=== PATIENT | female | born 1975 | race Caucasian/White ===

== ENCOUNTER 2016-06-11 17:00 | Inpatient (IN) | payer BC, OTHER ==
[~2016-06-11] VITALS: Ht 162.6 cm; Wt 85.1 kg
[~2016-06-11 17:00] MED LIST: ADDE30TA PO; DEPA500T3 PO; DIVA500T PO; XANA1TAB2 PO
[2016-06-11 18:20] VITALS: BP 95/44; PULSE 93; RESP 16; TEMP 98.1; O2SAT 94
[2016-06-11 18:56] VITALS: BP 105/61; PULSE 76; RESP 18; TEMP 96.4; O2SAT 98
--- NOTE | 2016-06-11 20:34 | PD ---
HPI Chief Complaint: Psychiatric Symptoms Time Seen by Provider: 20:34 Travel History International Travel<30 days: No Contact w/Intl Traveler<30days: No Traveled to known affect area: No History of Present Illness HPI 41 year old female presents to the ED under Humphreys Act for psychiatric evaluation. According to BA paperwork the patient cut herself, then called her father stating that she drank a lot of vodka and there was blood everywhere. The patient was seen at an outside hospital and treated. Just before discharge she made a suicidal statement and was BA'd and transferred here.On presentation the patient is intoxicated. She denies SI. She endorses drinking vodka today. She can provide no other meaningful history. PFSH Past Medical History Hx Anticoagulant Therapy: No Anemia: Yes (secondary to heavy menstrual cycle) Bipolar Disorder: Yes (NON MEDICATED) Anxiety: Yes Depression: Yes Cardiovascular Problems: No Chemotherapy: No Cerebrovascular Accident: No Diabetes: No Diminished Hearing: No Endocrine: No Immune Disorder: No Neurologic: Yes Psychiatric: No Respiratory: No Immunizations Current: Yes Seizures: Yes (R/T ETOH WITHDRAWL) Thyroid Disease: No ?: Unknown Menopausal: Yes : 2 Para: 2 Past Surgical History Section: Yes Cholecystectomy: Yes Endocrine Surgery: Yes (gall bladder removed) Hysterectomy: Yes Other Surgery: Yes (gastric bypass) Social History Alcohol Use: Yes (recent relapse. ) Tobacco Use: No Substance Use: Yes Allergies-Medications (Allergen,Severity, Reaction): Coded Allergies: Aspirin (Verified Allergy, Unknown, Nausea/Vomiting, 06/11/16) Reported Meds & Prescriptions Reported Meds & Active Scripts Active Divalproex DR (Divalproex Sodium) 500 Mg Tabdr 500 Mg PO BID 7 Days Reported Adderall (Amphetamine-Dextroamphetamine) 30 Mg Tab 30 Mg PO DAILY Avoid late evening doses. Space doses at least 4 to 6 hours if more than once/day dosing. Depakote ER (Divalproex Sodium) 500 Mg Xiomara 500 Mg PO DAILY Xanax (Alprazolam) 1 Mg Tab 0.25 Mg PO Q6H PRN Review of Systems ROS Limitations: Intoxication Except as stated in HPI: all other systems reviewed are Neg Physical Exam Exam Limitations: Intoxication Narrative GENERAL: Well-nourished, well-developed white female in no acute distress. Somnolent but arouses easily to voice. SKIN: Warm and dry. Several superficial scratches on the right forearm and right palm. No active bleeding or signs of infection. HEAD: Normocephalic. EYES: No scleral icterus. No injection or drainage. Pupils 2-3 mm and reactive bilaterally. NECK: Supple, trachea midline. No JVD or lymphadenopathy. CARDIOVASCULAR: Regular rate and rhythm without murmurs, gallops, or rubs. RESPIRATORY: Breath sounds clear and equal bilaterally. No accessory muscle use. GASTROINTESTINAL: Abdomen soft, non-tender, nondistended. Active bowel sounds. MUSCULOSKELETAL: No cyanosis, or edema. Moves extremities spontaneously. BACK: No obvious deformity. No CVA tenderness. Data Data Last Documented VS Vital Signs Date Time Temp Pulse Resp B/P Pulse Ox O2 Delivery O2 Flow Rate FiO2 06/12/16 06:10 71 18 115/72 Room Air 06/12/16 02:57 97.4 96 Orders Complete Blood Count With Diff (06/11/16 17:08) Comprehensive Metabolic Panel (06/11/16 17:08) Urinalysis - C+S If Indicated (06/11/16 17:08) Drug Screen, Random Urine (06/11/16 17:08) Ed Urine Pregnancytest Poc (06/11/16 17:08) Alcohol (Ethanol) (06/11/16 17:08) Psych Screen (06/11/16 17:08) Diet Regular Basic (06/12/16 Breakfast) Alcohol Withdrawal Asmt-Ciwa ONCE (06/11/16 20:53) Ondansetron Odt (Zofran Odt) (06/11/16 21:00) Flumazenil Inj (Romazicon Inj) (06/11/16 21:00) Lorazepam (Ativan) (06/11/16 21:00) Lorazepam Inj (Ativan Inj) (06/11/16 21:00) Lorazepam (Ativan) (06/11/16 21:00) Lorazepam Inj (Ativan Inj) (06/11/16 21:00) Lorazepam Inj (Ativan Inj) (06/11/16 21:00) Lorazepam Inj (Ativan Inj) (06/11/16 21:00) Admit Order (Ed Use Only) (06/12/16 ) Labs Laboratory Tests Test 06/11/16 06/11/16 19:59 23:45 White Blood Count 5.5 TH/MM3 Red Blood Count 4.07 MIL/MM3 Hemoglobin 13.3 GM/DL Hematocrit 40.9 % Mean Corpuscular Volume 100.4 FL Mean Corpuscular Hemoglobin 32.7 PG Mean Corpuscular Hemoglobin 32.6 % Concent Red Cell Distribution Width 15.3 % Platelet Count 208 TH/MM3 Mean Platelet Volume 8.5 FL Neutrophils (%) (Auto) 41.0 % Lymphocytes (%) (Auto) 43.6 % Monocytes (%) (Auto) 13.3 % Eosinophils (%) (Auto) 1.1 % Basophils (%) (Auto) 1.0 % Neutrophils # (Auto) 2.2 TH/MM3 Lymphocytes # (Auto) 2.4 TH/MM3 Monocytes # (Auto) 0.7 TH/MM3 Eosinophils # (Auto) 0.1 TH/MM3 Basophils # (Auto) 0.1 TH/MM3 CBC Comment DIFF FINAL Differential Comment Urine Color YELLOW Urine Turbidity CLEAR Urine pH 5.5 Urine Specific [place] 1.014 Urine Protein NEG mg/dL Urine Glucose (UA) NEG mg/dL Urine Ketones NEG mg/dL Urine Occult Blood NEG Urine Nitrite NEG Urine Bilirubin NEG Urine Urobilinogen LESS THAN 2.0 MG/DL Urine Leukocyte Esterase NEG Urine RBC LESS THAN 1 /hpf Urine WBC 2 /hpf Urine Squamous Epithelial <1 /hpf Cells Urine Mucus FEW /lpf Microscopic Urinalysis Comment CULT NOT INDICATED Urine Opiates Screen NEG Urine Barbiturates Screen NEG Urine Amphetamines Screen NEG Urine Benzodiazepines Screen POS Urine Cocaine Screen NEG Urine Cannabinoids Screen NEG MDM Medical Decision Making Medical Screen Exam Complete: Yes Emergency Medical Condition: Yes Differential Diagnosis Adjustment disorder versus anxiety versus bipolar versus depression versus dementia versus electrolyte disorder versus malingering versus mood disorder versus ODD versus psychosis versus PTSD versus schizophrenia versus schizoaffective disorder versus substance-induced mood disorder versus other Narrative Course 41-year-old female presents to the ED under Humphreys act for psychiatric evaluation. Patient is very intoxicated. She is somnolent but arouses easily to voice. He is unable to provide any meaningful history. Humphreys paperwork states that she drank vodka, slashed her wrist, called her father and said that there was blood everywhere. She was treated at outside hospital, made suicidal statements there and Humphreys acted. Vitals reviewed. Physical exam limited by level of intoxication. Psychiatric protocol labs and CIWA precautions were ordered and are pending. Anticipate medical clearance for psych evaluation. Please see psych notes for disposition. Diagnosis Primary Impression: Alcohol intoxication Qualified Code: F10.120 - Alcohol intoxication, uncomplicated Tiffanie Sow Jun 11, 2016 20:34
[2016-06-11] MEDS ORDERED: FLUMAZENIL 1 MG/10 ML VIAL IV PUSH PRN (21:00)
[2016-06-11] MEDS ORDERED: LORazepam 2 MG TAB PO PRN (21:00)
[2016-06-11] MEDS ORDERED: LORazepam 1 MG TAB PO PRN (21:00)
[2016-06-11] MEDS ORDERED: LORazepam 2 MG/ML VIAL IV PUSH PRN ×4 (21:00)
[2016-06-11 21:35] LABS: AUTOMATED NEUTROPHIL # 2.2 TH/MM3 (1.8-7.7); BASOPHIL # 0.1 TH/MM3 (0-0.2); EOSINOPHIL # 0.1 TH/MM3 (0-0.4); EOSINOPHIL % 1.1 % (0.0-4.0); HEMATOCRIT 40.9 % (35.0-46.0); HEMO FLAGS DIFF FINAL; LYMPH % 43.6 % (9.0-44.0); LYMPHOCYTE # 2.4 TH/MM3 (1.0-4.8); MEAN CELL VOLUME 100.4 FL (80.0-100.0); MEAN CORPUSCULAR HEMOGLOBIN 32.7 PG (27.0-34.0); MEAN CORPUSCULAR HGB CONC 32.6 % (32.0-36.0); MONO % 13.3 % (0.0-8.0); PLATELET COUNT 208 TH/MM3 (150-450); RED BLOOD COUNT 4.07 MIL/MM3 (4.00-5.30); RED CELL DISTRIBUTION WIDTH 15.3 % (11.6-17.2); WHITE BLOOD COUNT 5.5 TH/MM3 (4.0-11.0)
[2016-06-11 22:21] VITALS: BP 112/64; PULSE 75; RESP 17; O2SAT 99
[2016-06-12] LABS: BLOOD, URINE NEG (NEG); COMMENT (UR) CULT NOT INDICATED; CULTURE IF INDICATED CULT NOT INDICATED; GLUCOSE,URINE NEG (NEG); KETONE, URINE NEG (NEG); MUCUS URINE FEW /lpf (OCC); NITRITE,URINE NEG (NEG); PH, URINE 5.5 (5.0-8.5); SQUAMOUS EPITHELIAL CELL URINE <1 /hpf (0-5); URINE COLOR YELLOW (YELLW/STRAW)
[2016-06-12 00:05] LABS: AMPHETAMINE, URINE NEG (NEG); BARBITURATES, URINE NEG (NEG); COCAINE, URINE NEG (NEG)
[2016-06-12 02:57] VITALS: BP 108/64; PULSE 82; RESP 18; TEMP 97.4; O2SAT 96
[2016-06-12 06:10] VITALS: BP 115/72; PULSE 71; RESP 18
--- NOTE | 2016-06-12 08:51 | HHI.HP ---
Provisional Diagnosis Admission Date Jun 12, 2016 at 08:49 [place] I. 1. Alcohol dependence with alcohol-induced mood disorder [place] II. Deferred [place] V. GAF is 45 presently Certification of Person's Competence To Provide Express and Informed Consent I have personally examined Carina Shah , a person being served at [facility] on, Jun 12, 2016 08:51. Express and informed consent means consent voluntarily given in writing, by a competent person, after sufficient explanation and disclosure of the subject matter involved to enable the person to make a knowing and willful decision without any element of force, fraud, deceit, duress, or other form of constraint or coercion. This person is 18 years of age or older, is not now known to be incompetent to consent to treatment with a guardian advocate, and does not have a health care surrogate or proxy currently making medical treatment decisions. I have found this person to be one of the following: [x] Competent to provide express and informed consent, as defined above, for voluntary admission to this facility and is competent to provide express and informed consent for treatment. He/she has the consistent capacity to make well reasoned, willful, and knowing decisions concerning his or her medical or mental health treatment. The person fully and consistently understands the purpose of the admission for examination/placement and is fully capable of personally exercising all rights assured [place] Incompetent to provide express and informed consent to voluntary admission, and this is incompetent to provide express and informed consent to treatment. The person must be transferred to involuntary status and a petition for a guardian advocate filed with the Circuit Court. [] Refusing to provide express and informed consent to voluntary admission but is competent to provide express and informed consent for treatment. The person must be discharged or transferred to involuntary status. Form shall be completed within 24 hours of a person's arrival at the receiving facility and filed in the clinical record of each person: 1. Admitted on a voluntary basis 2. Permitted to provide express and informed consent to his/her own treatment 3. Allowed to transfer from involuntary to voluntary status 4. Prior to permitting a person to consent to his or her own treatment after having been previously found incompetent to consent to treatment. History of Present Illness Capacity: Has Capacity HPI Ms. Shah is a 41-year-old female with a reported history of bipolar disorder, anxiety disorder and alcoholism who presents under a Humphreys act from [facility]'s office alleging that the patient called her father saying that she had cut herself and father then called police. When police arrived they found her with 2 empty vodka bottles. Reviewing the electronic medical record, I note that the patient was admitted for a single day under Dr. Camarena after she fell into a pool while drunk and this was interpreted as trying to drown herself. Patient seen and examined. Chart reviewed. Case discussed with nurse in the J- pod. On my examination today, the patient insists that she cut herself but only accidentally. She says that she is in the process of her of 20 years and was moving boxes and accidentally cut herself with something maximo to a jukebox coin collector. She says that she called her father who then overreacted. She does admit to some depression and stress related to her psychosocial stressors but denies any enduring feelings of hopelessness, worthlessness or morbid guilt. She denies any suicidal ideation at this time saying that she wants to go back to school. She wants to live for her children and grandchildren as well as for herself. I can elicit no hypomanic or manic symptoms. She denies any AVH and I can elicit no delusional beliefs. The remainder of the psychiatric ROS is negative. Past psychiatric history: Includes diagnoses listed above. She says that she follows with Dr. Escobedo at [facility]. She saw him about a week ago. She is prescribed Latuda and Xanax and feels these medications are working well for her. She denies a history of psychiatric admissions but was admitted briefly here as I said above. She denies a history of suicide attempts. Family history: Patient reports a family history of depression in her mother. Her mother was also reportedly an alcoholic. She denies any family history of suicide. Chemical dependency history: Patient admits to drinking 3 pints of vodka daily. She maintains that she had been sober for 7 months before relapsing a short time ago, although patient's alcohol level was significantly elevated when she presented in May. She says her longest sober time is about a year after a 30 day rehabilitation program. She is active in Alcoholics Anonymous and reports that she has a sponsor. She denies other substance use. Social history: Patient reports that up until now she has been living with her but is in the process of moving out as they are . She has a 21 -year-old and a 24-year-old child as well as a grandson. She has some college education but is not presently working. She denies any history. She endorses a history of DUI in 2007. She denies any access to guns or firearms. She has no particular mu-ism or spiritual beliefs. Review of Systems Other No reported headache, vision or hearing changes, chest pain, shortness of breath , bowel or bladder issues. No other somatic complaints. Past Psych History Psychological trauma history No reported trauma history to ia Violence risk - others (6 mos) Lower imminent risk Violence risk - self (6 mos) Unclear. Concern for elevated risk Substance Abuse History Drugs/Alcohol past 12 months See above Past Family Social History Coded Allergies: Aspirin (Verified Allergy, Unknown, Nausea/Vomiting, 06/11/16) Past Medical History See electronic medical record. Patient denies any medical issues and says that her only medications are the psychotropics detailed above. Active Scripts Divalproex DR 500 Mg [id number] Mg PO BID 7 Days Ref 1 Prov:Adair Camarena MD 05/28/16 Reported Medications Amphetamine-Dextroamphetamine (Adderall)30 Mg Tab30 Mg PO DAILY #30 TAB Ref 0 Avoid late evening doses. Space doses at least 4 to 6 hours if more than once/day dosing. 05/26/16 Divalproex ER (Depakote ER)500 Mg [id number] Mg PO DAILY #30 TAB Ref 0 05/26/16 Alprazolam (Xanax)1 Mg Tab0.25 Mg PO Q6H PRN (ANXIETY) Ref 0 05/26/16 Current Medications Medications (Trade) Dose Ordered Sig/Hal Route Start Time Stop Time Status Last Admin (Zofran Odt) 4 mg Q8H PRN PO 06/11/16 21:00 (Ativan) 1 mg Q4H PRN PO 06/11/16 21:00 (Ativan) 2 mg Q2H PRN PO 06/11/16 21:00 Family History See above Social History See above Patient's Strengths (min. 2) Maintaining basic hygiene. Verbally fluent. Physical Exam A physical examination was completed in the emergency room by the ER staff and the patient was medically cleared. On my examination today, the patient appears to be in no acute physical distress. She is well-nourished and well- developed. No abnormal motor movements noted. No signs of withdrawal noted. In particular no hand tremor, no diaphoresis, no mydriasis. Labs and vital signs reviewed. Vital Signs Vital Signs Date Time Temp Pulse Resp B/P Pulse Ox O2 Delivery O2 Flow Rate FiO2 06/12/16 06:10 71 18 115/72 Room Air 06/12/16 02:57 97.4 96 Lab Results Item Value Date Time White Blood Count 5.5 TH/MM3 06/11/161958 Hemoglobin 13.3 GM/DL 06/11/161958 Platelet Count 208 TH/MM3 06/11/161958 Urine Benzodiazepines Screen POS H 06/11/16 3615 Urinalysis was bland. An alcohol level was not obtained at this admission. CMP was not obtained. Mental Status Examination Patient is in hospital gown. She is well groomed. She is awake and alert and oriented 3. No evidence of delirium. No abnormal motor movements noted. Speech is within normal limits for rate, tone and volume. Language and fund of knowledge seem adequate and appropriate for age. Mood is described as a little bit stressed and depressed but not severely so. Affect remains fairly full and reactive. Thought process linear. No loosening of associations. No evident delusions. Patient denies suicidal or homicidal ideation. Insight and judgment are unclear but probably fair. Assessment & Plan Problem List: (1) Alcohol dependence ICD Code: F10.20 Assessment & Plan This is a 41-year-old female with psychiatric history as detailed above who presents on a Humphreys act. On my examination today, the patient adamantly denies that she was endeavoring to self injure but rather says that she accidentally cut herself or moving boxes. She does admit to some stress and depression related to her psychosocial stressors but denies any suicidal ideation, intent or plan at this time. Collateral obtained by nursing staff from family is not completely reassuring however, and so I think it is prudent to admit the patient briefly to the inpatient psychiatric unit for observation and stabilization if necessary. --Admit inpatient --Voluntary status --Check a CMP. Check a hemoglobin A1c and lipid panel in the morning. --Continue patient's Latuda 40 mg with dinner --Short Librium taper for any withdrawal. CIWA with Ativan for breakthrough. Thiamine/folate. Seizure/fall prec. --Atarax as needed for anxiety. Cogentin as needed for EPS. Benadryl as needed for sleep. --Vitals every shift --Counselor to see --Disposition planning --Estimated length of stay: 3-5 days Discharge Planning Pending outcome of observation Request HC Surrog/Guard Advoc?: No Problem Qualifiers (1) Alcohol dependence: Qualified Code: F10.24 - Alcohol dependence with alcohol-induced mood disorder Donal Crook MD Jun 12, 2016 08:51
[2016-06-12] MEDS ORDERED: REMOVE OLD PATCH T-DERMAL SCH (09:00)
[2016-06-12] MEDS ORDERED: NICOTINE 21 MG/24 HR PATCH T-DERMAL SCH (09:00)
[2016-06-12] MEDS ORDERED: diphenhydrAMINE HCL 50 MG CAP PO PRN (09:00)
[2016-06-12] MEDS ORDERED: ACETAMINOPHEN 325 MG TAB PO PRN (09:00)
[2016-06-12] MEDS ORDERED: LORazepam 2 MG/ML VIAL IM PRN ×4 (09:00)
[2016-06-12] MEDS ORDERED: hydrOXYzine HCL 50 MG TAB PO PRN (09:00)
[2016-06-12] MEDS ORDERED: MAGNESIUM HYDROXIDE SUSP 30 ML CUP PO PRN (09:00)
[2016-06-12] MEDS ORDERED: ALUMINUM/MAGNESIUM/SIMETH 30 ML CUP PO PRN (09:00)
[2016-06-12] MEDS ORDERED: BENZTROPINE MESYLATE 1 MG TAB PO PRN (09:00)
[2016-06-12] MEDS ORDERED: BENZTROPINE MESYLATE 2 MG/2 ML VIAL IM PRN (09:00)
[2016-06-12] MEDS ORDERED: chlordiazePOXIDE 25 MG CAP PO SCH (09:00)
[2016-06-12] MEDS: FOLIC ACID 1 MG TAB PO SCH (09:48)
[2016-06-12] MEDS: chlordiazePOXIDE 25 MG CAP PO SCH ×3 (09:48→17:31)
[2016-06-12] MEDS: THIAMINE HCL 100 MG TAB PO SCH (09:48)
[2016-06-12 09:50] VITALS: BP 129/83; PULSE 86
[2016-06-12 09:58] VITALS: BP 129/83; PULSE 86; RESP 18
[2016-06-12 10:21] VITALS: BP_SYST 124; BP_SYST 130; BP_DIAS 75; PULSE 65; PULSE 74; RESP 18; TEMP 97.8; TEMP 98.7
[2016-06-12 11:57] LABS: ALT (GPT) 33 U/L (10-53); ANION GAP 8 MEQ/L (5-15); AST (GOT) 65 U/L (15-37); BICARBONATE 27.7 MEQ/L (21.0-32.0); BLOOD UREA NITROGEN 8 MG/DL (7-18); CHLORIDE 103 MEQ/L (98-107); GLOMERULAR FILTRATION RATE 101 ML/MIN (>89); SODIUM (NA) 139 MEQ/L (136-145)
[2016-06-12 11:59] LABS: ALKALINE PHOSPHATASE 106 U/L (45-117); TOTAL BILIRUBIN ADULT 0.8 MG/DL (0.2-1.0)
[2016-06-12 14:37] LABS: BETA HCG QUANT LESS THAN 1 MIU/ML (0-5)
--- NOTE | 2016-06-12 16:27 | RADRPT ---
EXAM DATE/TIME: 06/12/2016 15:51 [facility] COMPARISON: No previous studies available for comparison. INDICATIONS : Entire right hand pain with bruising after fall. MEDICAL HISTORY : None. SURGICAL HISTORY : None. ENCOUNTER: Initial ACUITY: 2 days PAIN SCORE: 6/10 LOCATION: Right upper extremity FINDINGS: Three view examination of the right hand demonstrates no soft tissue swelling, dislocation, or fractu re. The carpal bones appear intact. The interphalangeal and metacarpophalangeal joints are intact. Bony mineralization is normal. CONCLUSION: Normal examination for a patient of this age. Meng Rubalcava MD on June 12, 2016 at 16:23 Board Certified Radiologist. This report was verified electronically.
[2016-06-12] MEDS: ONDANSETRON ODT 4 MG TAB PO PRN (17:31)
[2016-06-12] MEDS: LURASIDONE 40 MG TAB PO SCH (17:31)
[2016-06-13 05:56] VITALS: BP 130/79; PULSE 72; RESP 16; TEMP 97.6; O2SAT 97
[2016-06-13 07:58] LABS: HDL CHOLESTEROL 114.2 MG/DL (40.0-60.0); LDL CHOLESTEROL 13 MG/DL (0-99)
[2016-06-13] MEDS: chlordiazePOXIDE 25 MG CAP PO SCH ×2 (09:00→21:27)
[2016-06-13] MEDS: FOLIC ACID 1 MG TAB PO SCH (09:00)
[2016-06-13] MEDS: THIAMINE HCL 100 MG TAB PO SCH (09:00)
[2016-06-13] MEDS: ONDANSETRON ODT 4 MG TAB PO PRN (09:26)
[2016-06-13 12:00] VITALS: BP 136/66; PULSE 74
--- NOTE | 2016-06-13 14:33 | HHI.PYPN ---
Subjective Remarks Patient seen and examined. Chart reviewed. Patient has required no Ativan for breakthrough withdrawal and continues on her uneventful Librium taper. Case discussed with nursing staff who reports patient has been no behavioral problem. No evidence of any suicidality or homicidality on the inpatient unit. On my examination today, patient is in good spirits. She is participating in unit activities. She denies any SI or HI. No issues with mood reported. She denies any alcohol withdrawal symptoms. She is hopeful to be discharged early tomorrow so that she can meet up with her psychotherapist in the afternoon. Denies side effects from medications. No other issues noted. Review of Systems Other No somatic complaints today Objective Alert: Yes [place]: Person, Place, Date, Situation Mood: Calm Affect: Other (fairly full and reactive) Memory Intact: Comment (intact on clinical exam) Hallucinations: Other (no AVH) Delusions: No Delusion Type: Other (no evident delusional material) Suicidal: Ideation (denies suicidal ideation) Homicidal: Ideation (denies homicidal ideation) Insight/Judgement Fair Remarks No abnormal motor movements noted. No hand tremor, no diaphoresis, no mydriasis , no other signs of alcohol withdrawal. Thought process linear. Labs Test 06/13/16 07:02 Triglycerides Level 73 MG/DL Cholesterol Level 142 MG/DL LDL Cholesterol 13 MG/DL HDL Cholesterol 114.2 MG/DL Cholesterol/HDL Ratio 1.24 RATIO Labs reviewed. Vitals/IOs Vital Signs Date Time Temp Pulse Resp B/P Pulse Ox O2 Delivery O2 Flow Rate FiO2 06/13/16 12:00 74 136/66 06/13/16 05:56 97.6 16 97 06/12/16 09:58 Room Air Assessment & Plan Problem List: (1) Alcohol dependence ICD Code: F10.20 Assessment & Plan Continue Latuda as ordered. Continue Librium taper. Continue other medications and care as ordered. Justification for Cont. Inpt. Monitoring for safety Discharge Planning Monitor overnight. Anticipate discharge tomorrow barring some clinical worsening. Request HC Surrog/Guard Advoc?: No Problem Qualifiers (1) Alcohol dependence: Qualified Code: F10.24 - Alcohol dependence with alcohol-induced mood disorder Donal Crook MD Jun 13, 2016 14:33
[2016-06-13 16:39] LABS: HEMOGLOBIN A1a 1.2 %; HEMOGLOBIN A1b 1.3 %; HEMOGLOBIN Ao 86.2 %; HEMOGLOBIN LA1C 1.8 %; HEMOGLOBIN P3 3.4 %
[2016-06-13] MEDS: LURASIDONE 40 MG TAB PO SCH (18:00)
[2016-06-13 18:54] VITALS: BP 112/69; PULSE 60; RESP 16; TEMP 98.2; O2SAT 98
[2016-06-14 05:43] VITALS: BP 99/64; PULSE 52; RESP 16; TEMP 98; O2SAT 100
[2016-06-14] MEDS ORDERED: LURA40 PO (08:28)
[2016-06-14] MEDS ORDERED: FOLI1TAB4 PO (08:28)
[2016-06-14] MEDS ORDERED: HYDR50TA94 PO (08:28)
[2016-06-14] MEDS ORDERED: VITA100T2 PO (08:28)
--- NOTE | 2016-06-14 08:28 | HHI.DS ---
Psychiatry Discharge Summary Inpatient Psychiatric care?: Yes Advance Directive: No Reason Not Provided: none Mental Health AdvanceDirective: No Health Care Proxy: No Admission Admission Date Jun 12, 2016 at 08:49 Admission Diagnosis: (1) Alcohol dependence ICD Code: F10.20 GAF Score: 45 Brief History Ms. Shah is a 41-year-old female with a reported history of bipolar disorder, anxiety disorder and alcoholism who presents under a Humphreys act from [facility] Sheriff's office alleging that the patient called her father saying that she had cut herself and father then called police. When police arrived they found her with 2 empty vodka bottles. Reviewing the electronic medical record, I note that the patient was admitted for a single day under Dr. Camarena after she fell into a pool while drunk and this was interpreted as trying to drown herself. Patient seen and examined. Chart reviewed. Case discussed with nurse in the J- pod. On my examination today, the patient insists that she cut herself but only accidentally. 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 She says that she called her father who then overreacted. She does admit to some depression and stress related to her psychosocial stressors but denies any enduring feelings of hopelessness, worthlessness or morbid guilt. She denies any suicidal ideation at this time saying that she wants to go back to school. She wants to live for her children and grandchildren as well as for herself. I can elicit no hypomanic or manic symptoms. She denies any AVH and I can elicit no delusional beliefs. The remainder of the psychiatric ROS is negative. Past psychiatric history: Includes diagnoses listed above. She says that she follows with Dr. Escobedo at [facility]. She saw him about a week ago. She is prescribed Latuda and Xanax and feels these medications are working well for her. She denies a history of psychiatric admissions but was admitted briefly here as I said above. She denies a history of suicide attempts. Family history: Patient reports a family history of depression in her mother. Her mother was also reportedly an alcoholic. She denies any family history of suicide. Chemical dependency history: Patient admits to drinking 3 pints of vodka daily. She maintains that she had been sober for 7 months before relapsing a short time ago, although patient's alcohol level was significantly elevated when she presented in May. She says her longest sober time is about a year after a 30 day rehabilitation program. She is active in Alcoholics Anonymous and reports that she has a sponsor. She denies other substance use. Social history: Patient reports that up until now she has been living with her but is in the process of moving out as they are . She has a 21 -year-old and a 24-year-old child as well as a grandson. She has some college education but is not presently working. She denies any history. She endorses a history of DUI in 2007. She denies any access to guns or firearms. She has no particular sikhism or spiritual beliefs. Tobacco Use In Past 30 Days: No Tobacco Past 30 Days Alcohol Use: 4 or More Times Per Week Hospital Course Patient was admitted to a locked, inpatient psychiatric unit. Appropriate precautions were in place throughout patient's hospital stay. Patient was seen and examined daily on the unit by psychiatry and also visited by counselor. Patient was continued on her home Latuda. She was placed on a brief Librium taper for the management of any alcohol withdrawal symptoms, and she had no signs of clinically significant withdrawal. Patient tolerated medications well without side effects. There was no evidence of any suicidality or homicidality on the inpatient unit. Patient remained in good behavioral control and was medication compliant. On the day of discharge: Case discussed with nursing staff. Patient has been no behavioral problem on the unit. The patient requests that I discharge her home today. Mood is improved versus admission. She denies any SI, HI or AVH. She denies any side effects from medications. Her plan is to follow-up with her psychotherapist this afternoon and then contact her Alcoholics Anonymous sponsor and get active again in 12 step programming. She denies any physical complaints. No symptoms of withdrawal. Weighing the acute, chronic, and protective factors and based on the available evidence, I chicken raiser to a reasonable degree of medical certainty that the patient is at low imminent risk for harm to self or others from her mental illness as defined under the Humphreys act and her level of function is adequate for outpatient care. The patient has maximized benefit from this inpatient psychiatric hospital stay will be discharged today in stable condition with psychiatric follow-up as arranged by counselor. Patient is also to follow-up with primary care. I have counseled the patient regarding warning signs for need to return to the psychiatric emergency room as part of the general safety plan. Results Blood Pressure 99 / 64 Vital Signs Date Time Temp Pulse Resp B/P Pulse Ox O2 Delivery O2 Flow Rate FiO2 06/14/16 05:43 98.0 52 16 99/64 100 06/12/16 09:58 Room Air Laboratory Tests Test 06/11/16 06/11/16 06/12/16 06/13/16 19:59 23:45 11:23 07:02 Mean Corpuscular Volume 100.4 FL (80.0-100.0) Monocytes (%) (Auto) 13.3 % (0.0-8.0) Urine Mucus FEW /lpf (OCC) Urine Benzodiazepines Screen POS (NEG) Random Glucose 73 MG/DL (74-106) Calcium Level 8.1 MG/DL (8.5-10.1) Aspartate Amino Transf 65 U/L (15-37) (AST/SGOT) Albumin 3.3 GM/DL (3.4-5.0) HDL Cholesterol 114.2 MG/DL (40.0-60.0) Laboratory Results Test 06/13/16 07:02 Hemoglobin A1c 4.9 % (4.3-6.0) Triglycerides Level 73 MG/DL (42-150) Cholesterol Level 142 MG/DL (120-200) LDL Cholesterol 13 MG/DL (0-99) HDL Cholesterol 114.2 MG/DL (40.0-60.0) Summary of Procedures None done. Imaging Last Impressions Hand X-Ray 06/12/16 0000 Signed Impressions: Service Date/Time: Sunday, June 12, 2016 15:51 - CONCLUSION: Normal examination for a patient of this age. Meng Rubalcava MD Pending results at discharge: No Medications # of Antipsychotic meds at D/C: 1 Approp Antipsych med options 1 - Minimum of three failed multiple trials of monotherapy. 2 - Documented plan to taper to monotherapy due to previous use of multiple meds OR cross-taper in progress at D/C. 3 - Documentation of augmentation of Clozapine. 4 - Justification other than those listed in allowable values 1-3, document here : Discharge Discharge Date: Jun 14, 2016 Discharge Diagnosis: (1) Alcohol dependence Diagnosis: Principal ICD Code: F10.20 GAF on discharge is 60. Mental Status Exam at Disch Patient is casually dressed. She is well groomed. She is awake and alert and oriented 3. No evidence of delirium. No abnormal motor movements noted. In particular no hand tremor, no diaphoresis, no mydriasis, no other signs of alcohol withdrawal. Speech is within normal limits for rate, tone and volume. Language and fund of knowledge seem adequate and appropriate for age. Mood is euthymic and affect is full and reactive. Thought process linear. No loosening of associations. No evident delusions. Denies AVH. Denies suicidal or homicidal ideation. Insight and judgment are fair. Pt Condition on Discharge: Stable Discharge Disposition: Discharge Home Discharge Instructions Diet Instructions: As Tolerated, No Restrictions Activities you can perform: Weight Bearing as Ady Scheduled Appointment: as per counselor's notes New Medications: Folic Acid (Folate) 1 Mg Tab 1 MG PO DAILY Nutritional Supplement Days 15 Ref 1 TAB Hydroxyzine HCl (Hydroxyzine HCl) 50 Mg Tab 50 MG PO BID PRN ANXIETY Days 15 Ref 1 TAB Lurasidone (Latuda) 40 Mg Tab 40 MG PO WITH DINNER Order to update med rec only. Patient has adequate supply at home. Mental Health Days 0 Ref 0 TAB Thiamine (Vitamin B-1) 100 Mg Tab 100 MG PO DAILY Nutritional Supplement Days 15 Ref 1 TAB Discontinued Medications: Alprazolam (Xanax) 1 Mg Tab 0.25 MG PO Q6H PRN ANXIETY Ref 0 TAB Amphetamine-Dextroamphetamine (Adderall) 30 Mg Tab 30 MG PO DAILY Avoid late evening doses. Space doses at least 4 to 6 hours if more than once/day dosing. Hyperactivity Control #[address] (Divalproex DR) 500 Mg Tabdr 500 MG PO BID seizure Days 7 Ref 1 TAB Divalproex ER (Depakote ER) 500 Mg Xiomara 500 MG PO DAILY Control Seizures #30 Ref 0 TAB Discharge Time <= 30 minutes Discharge/Advance Care Plan Health Problems: (1) Alcohol dependence Goals to promote your health * To prevent worsening of your condition and complications * To maintain your health at the optimal level Directions to meet your goals Take your medications as prescribed Follow your dietary instruction Follow activity as directed Keep your appointments as scheduled Take your immunizations and boosters as scheduled If your symptoms worsen call your PCP, if no PCP go to Urgent Care Center or Emergency Room For 31/12 questions related to your inpatient stay or results of tests pending at discharge, please contact Dr. Donal Crook at Smoking is Dangerous to Your Health. Avoid second hand smoking Problem Qualifiers (1) Alcohol dependence: Qualified Code: F10.20 - Uncomplicated alcohol dependence Donal Crook MD Jun 14, 2016 08:28
[2016-06-14] MEDS: FOLIC ACID 1 MG TAB PO SCH (08:42)
[2016-06-14] MEDS: THIAMINE HCL 100 MG TAB PO SCH (08:42)
== END 2016-06-14 12:05 | disposition home or self-care (01) | DRG 897 ==
LOC: NEPJ 17:00 → NEDA 06-12 08:49 → H260 06-12 10:15
PROVIDERS: ADMIT Psychiatry & Neurology Psychiatry; ATTEND Psychiatry & Neurology Psychiatry
DX: F10.24 Alcohol dependence with alcohol-induced mood disorder (principal)
CPT/HCPCS: 73130; 80053; 80061; 80307; 81001; 83036; 84702; 84703; 85025; 99284

== ENCOUNTER 2016-06-19 22:38 | Emergency (ER) | payer BC, OTHER ==
[~2016-06-19] VITALS: Ht 162.6 cm; Wt 85.0 kg
[~2016-06-19 22:38] MED LIST changes: -ADDE30TA PO; -DEPA500T3 PO; -DIVA500T PO; +FOLI1TAB4 PO; +HYDR50TA94 PO; +LURA40 PO; +VITA100T2 PO; -XANA1TAB2 PO
[2016-06-19] MEDS ORDERED: DIVA250ER PO (22:58)
[2016-06-19 23:06] VITALS: BP 105/67; PULSE 86; RESP 18; TEMP 97.6; O2SAT 99
[2016-06-19] MEDS ORDERED: SODIUM CHLOR 0.9% 1000 ML INJ 1,000 ML IV ONE (23:15)
[2016-06-19 23:30] LABS: AUTOMATED NEUTROPHIL # 4.2 TH/MM3 (1.8-7.7); BASOPHIL % 0.5 % (0.0-2.0); EOSINOPHIL # 0.1 TH/MM3 (0-0.4); EOSINOPHIL % 1.3 % (0.0-4.0); HEMATOCRIT 37.9 % (35.0-46.0); HEMO FLAGS DIFF FINAL; LYMPH % 33.9 % (9.0-44.0); LYMPHOCYTE # 2.5 TH/MM3 (1.0-4.8); MEAN CELL VOLUME 97.2 FL (80.0-100.0); MEAN CORPUSCULAR HEMOGLOBIN 32.7 PG (27.0-34.0); MEAN CORPUSCULAR HGB CONC 33.7 % (32.0-36.0); MONO % 8.6 % (0.0-8.0); NEUT % 55.7 % (16.0-70.0); PLATELET COUNT 213 TH/MM3 (150-450); RED CELL DISTRIBUTION WIDTH 16.3 % (11.6-17.2); WHITE BLOOD COUNT 7.5 TH/MM3 (4.0-11.0)
[2016-06-19 23:38] LABS: AMPHETAMINE, URINE NEG (NEG); BARBITURATES, URINE NEG (NEG); COCAINE, URINE NEG (NEG)
--- NOTE | 2016-06-19 23:39 | PD ---
HPI Chief Complaint: Psychiatric Symptoms Time Seen by Provider: 23:35 Travel History International Travel<30 days: No Contact w/Intl Traveler<30days: No Traveled to known affect area: No History of Present Illness HPI 41-year-old female with history of bipolar disorder and alcohol dependence, presents to emergency department under Humphreys act for psychiatric evaluation. Patient was upset this evening about her marriage and attempted to choke herself using electrical cords. This was witnessed by her . He stopped her from doing this and contacted police. When police arrived, patient had electrical cords wound her neck but was awake, combative, and belligerent towards them. She was placed under Humphreys act and brought to the emergency department. Patient states that she was upset and attempted to kill herself. She states that her may francis on her face and makes clear that "he wasn' t trying to favor." Patient denies any pain. States that she does have seizures and is supposed to take Depakote but has not been taking this. She does not recall when her last seizure was. Denies any recent illnesses, fever, chills. Reports no difficulty breathing or swallowing. No other symptoms to report. PFSH Past Medical History Hx Anticoagulant Therapy: No Anemia: Yes (secondary to heavy menstrual cycle) Bipolar Disorder: Yes (NON MEDICATED) Anxiety: Yes Depression: Yes Cardiovascular Problems: No Chemotherapy: No Cerebrovascular Accident: No Diabetes: No Diminished Hearing: No Endocrine: No Gastrointestinal Disorders: Yes (hx of gastric bypass) Genitourinary: Yes (ANEMIA) Immune Disorder: No Neurologic: Yes Psychiatric: No Respiratory: No Immunizations Current: Yes Renal Failure: Yes (Stage 2 KD) Seizures: Yes (R/T ETOH WITHDRAWL) Thyroid Disease: No Influenza Vaccination: No ?: Not Menopausal: Yes : 2 Para: 2 Past Surgical History Section: Yes Cholecystectomy: Yes Endocrine Surgery: Yes (gall bladder removed) Hysterectomy: Yes Other Surgery: Yes (gastric bypass) Social History Alcohol Use: Yes (recent relapse. ) Tobacco Use: No Substance Use: Yes Allergies-Medications (Allergen,Severity, Reaction): Coded Allergies: Aspirin (Verified Allergy, Unknown, Nausea/Vomiting, 06/19/16) Reported Meds & Prescriptions Reported Meds & Active Scripts Active Hydroxyzine HCl 50 Mg Tab 50 Mg PO BID PRN 15 Days Folate (Folic Acid) 1 Mg Tab 1 Mg PO DAILY 15 Days Vitamin B-1 (Thiamine HCl) 100 Mg Tab 100 Mg PO DAILY 15 Days Latuda (Lurasidone) 40 Mg Tab 40 Mg PO WITH DINNER 0 Days Order to update med rec only. Patient has adequate supply at home. Reported Depakote ER (Divalproex Sodium) 250 Mg Xiomara 250 Mg PO DAILY Review of Systems ROS Limitations: Intoxication Except as stated in HPI: all other systems reviewed are Neg Physical Exam Exam Limitations: Intoxication Narrative GENERAL: Well-nourished female patient, in no acute distress SKIN: Warm and dry. There is erythema around the anterior neck consistent with choke/cord francis. Slight ecchymosis and redness to the nose and forehead. HEAD: Atraumatic. Normocephalic. EYES: Pupils equal and round. No scleral icterus. No injection or drainage. ENT: No nasal bleeding or discharge. Mucous membranes pink and moist. NECK: Trachea midline. No JVD. No cervical spine tenderness. No limitations range of motion of the cervical spine. CARDIOVASCULAR: Regular rate and rhythm. No murmur appreciated. RESPIRATORY: No accessory muscle use. Clear to auscultation. Breath sounds equal bilaterally. GASTROINTESTINAL: Abdomen soft, non-tender, nondistended. Hepatic and splenic margins not palpable. MUSCULOSKELETAL: No obvious deformities. No clubbing. No cyanosis. No edema. NEUROLOGICAL: Awake and alert. No obvious cranial nerve deficits. Motor grossly within normal limits. Normal speech. PSYCHIATRIC: Appropriate mood and affect; insight and judgment normal. Data Data Last Documented VS Vital Signs Date Time Temp Pulse Resp B/P Pulse Ox O2 Delivery O2 Flow Rate FiO2 06/19/16 23:06 97.6 86 18 105/67 99 Room Air Orders Complete Blood Count With Diff (06/19/16 23:02) Comprehensive Metabolic Panel (06/19/16 23:02) Urinalysis - C+S If Indicated (06/19/16 23:02) Drug Screen, Random Urine (06/19/16 23:02) Ed Urine Pregnancytest Poc (06/19/16 23:02) Alcohol (Ethanol) (06/19/16 23:02) Salicylates (Aspirin) (06/19/16 23:02) Tylenol (Acetaminophen) (06/19/16 23:02) Valproic Acid (Depakene) (06/19/16 23:02) Psych Screen (06/19/16 23:02) Iv Access Insert/Monitor (06/19/16 23:02) Sodium Chlor 0.9% 1000 Ml Inj (Ns 1000 M (06/19/16 23:15) Potassium, Serum (K) (06/20/16 01:03) Electrocardiogram (06/20/16 01:03) Diet Regular Basic (06/20/16 Breakfast) Diet Regular Basic (06/20/16 Lunch) Alcohol Withdrawal Asmt-Ciwa ONCE (06/20/16 12:54) Ondansetron Inj (Zofran Inj) (06/20/16 13:00) Acetaminophen (Tylenol) (06/20/16 13:00) Flumazenil Inj (Romazicon Inj) (06/20/16 13:00) Lorazepam (Ativan) (06/20/16 13:00) Lorazepam Inj (Ativan Inj) (06/20/16 13:00) Lorazepam (Ativan) (06/20/16 13:00) Lorazepam Inj (Ativan Inj) (06/20/16 13:00) Lorazepam Inj (Ativan Inj) (06/20/16 13:00) Lorazepam Inj (Ativan Inj) (06/20/16 13:00) Diet Regular Basic (06/20/16 Dinner) Labs Laboratory Tests Test 06/19/16 06/19/16 06/20/16 23:20 23:24 01:14 White Blood Count 7.5 TH/MM3 Red Blood Count 3.90 MIL/MM3 Hemoglobin 12.8 GM/DL Hematocrit 37.9 % Mean Corpuscular Volume 97.2 FL Mean Corpuscular Hemoglobin 32.7 PG Mean Corpuscular Hemoglobin 33.7 % Concent Red Cell Distribution Width 16.3 % Platelet Count 213 TH/MM3 Mean Platelet Volume 8.9 FL Neutrophils (%) (Auto) 55.7 % Lymphocytes (%) (Auto) 33.9 % Monocytes (%) (Auto) 8.6 % Eosinophils (%) (Auto) 1.3 % Basophils (%) (Auto) 0.5 % Neutrophils # (Auto) 4.2 TH/MM3 Lymphocytes # (Auto) 2.5 TH/MM3 Monocytes # (Auto) 0.6 TH/MM3 Eosinophils # (Auto) 0.1 TH/MM3 Basophils # (Auto) 0.0 TH/MM3 CBC Comment DIFF FINAL Differential Comment Salicylates Level LESS THAN 1.7 MG/DL Sodium Level 142 MEQ/L Potassium Level 6.1 MEQ/L 3.6 MEQ/L Chloride Level 109 MEQ/L Carbon Dioxide Level 28.1 MEQ/L Anion Gap 5 MEQ/L Blood Urea Nitrogen 11 MG/DL Creatinine 0.69 MG/DL Estimat Glomerular Filtration 93 ML/MIN Rate Random Glucose 85 MG/DL Calcium Level 7.7 MG/DL Total Bilirubin 0.3 MG/DL Aspartate Amino Transf 48 U/L (AST/SGOT) Alanine Aminotransferase 29 U/L (ALT/SGPT) Alkaline Phosphatase 96 U/L Total Protein 7.0 GM/DL Albumin 3.1 GM/DL Acetaminophen Level LESS THAN 2.0 MCG/ML Valproic Acid (Depakene) Level LESS THAN 3 MCG/ML Ethyl Alcohol Level 396 MG/DL Urine Color LIGHT-YELLOW Urine Turbidity CLEAR Urine pH 6.0 Urine Specific [place] 1.006 Urine Protein NEG mg/dL Urine Glucose (UA) NEG mg/dL Urine Ketones NEG mg/dL Urine Occult Blood NEG Urine Nitrite NEG Urine Bilirubin NEG Urine Urobilinogen LESS THAN 2.0 MG/DL Urine Leukocyte Esterase NEG Urine RBC 1 /hpf Urine WBC 1 /hpf Urine Squamous Epithelial 3 /hpf Cells Urine Bacteria RARE /hpf Microscopic Urinalysis Comment CULT NOT INDICATED Urine Opiates Screen NEG Urine Barbiturates Screen NEG Urine Amphetamines Screen NEG Urine Benzodiazepines Screen POS Urine Cocaine Screen NEG Urine Cannabinoids Screen NEG MDM Medical Decision Making Medical Screen Exam Complete: Yes Emergency Medical Condition: Yes Medical Record Reviewed: Yes Differential Diagnosis Intoxication versus polysubstance abuse versus mood disorder versus personality disorder Narrative Course 41-year-old female presents to the emergency department for evaluation under Humphreys. Patient is intoxicated. She admits to drinking large amount of alcohol frequently. She also has history of bipolar disorder. Patient does have redness around her neck where she attempted to choke herself. Workup was initiated and triage notes hallway for psychiatric clearance.. Diagnosis Primary Impression: Alcohol intoxication Qualified Code: F10.129 - Alcohol intoxication, with unspecified complication Additional Impressions: History of bipolar disorder Suicide attempt Condition: Stable FilibertoJanee EDUARDO Jun 19, 2016 23:39
[2016-06-19 23:43] LABS: BACTERIA, URINE RARE /hpf; BLOOD, URINE NEG (NEG); COMMENT (UR) CULT NOT INDICATED; CULTURE IF INDICATED CULT NOT INDICATED; GLUCOSE,URINE NEG (NEG); KETONE, URINE NEG (NEG); NITRITE,URINE NEG (NEG); SQUAMOUS EPITHELIAL CELL URINE 3 /hpf (0-5); URINE COLOR LIGHT-YELLOW (YELLW/STRAW)
[2016-06-19 23:52] LABS: ALKALINE PHOSPHATASE 96 U/L (45-117); TOTAL BILIRUBIN ADULT 0.3 MG/DL (0.2-1.0)
[2016-06-20] LABS: ALT (GPT) 29 U/L (10-53); ANION GAP 5 MEQ/L (5-15); AST (GOT) 48 U/L (15-37); BICARBONATE 28.1 MEQ/L (21.0-32.0); BLOOD UREA NITROGEN 11 MG/DL (7-18); CHLORIDE 109 MEQ/L (98-107); GLOMERULAR FILTRATION RATE 93 ML/MIN (>89); POTASSIUM 6.1 MEQ/L (3.5-5.1); SODIUM (NA) 142 MEQ/L (136-145)
[2016-06-20 00:01] LABS: ACETAMINOPHEN LESS THAN 2.0 MCG/ML (10.0-30.0)
--- NOTE | 2016-06-20 01:31 | PD ---
Physical Exam Narrative General: The patient is a well-developed well-nourished female in no acute distress. Head and Neck exam: Head is normocephalic, with a small bruise present in the medial aspect of the upper lip, abrasion noted to the distal nose. Eyes: Pupils are equal round and reactive to light. Nose: Midline septum with pink mucous membranes Mouth: Dentition unremarkable. Moist mucus membranes. Posterior oropharynx is not erythematous. No tonsillar hypertrophy. Uvula midline. Airway patent. Neck: No palpable lymphadenopathy. No nuchal rigidity. No thyromegaly. Cardiovascular: Regular rate and rhythm without murmurs, gallops, or rubs. Lungs: Clear to auscultation bilaterally. No wheezes, rhonchi, or rales. Abdomen: Soft, with reported tenderness on palpation in the right upper quadrant of the abdomen. No other tenderness on palpation of the other 3 quadrants of the abdomen. She reports that she has chronic upper abdominal pain related to heavy drinking. No guarding, rebound, or rigidity. Normal bowel sounds are audible. Extremities: No clubbing, cyanosis, or edema. 2+ pulses in all 4 extremities. Neurologic Exam: Skin Exam: No rash noted. Intact skin that is warm and dry. Data Data Last Documented VS Vital Signs Date Time Temp Pulse Resp B/P Pulse Ox O2 Delivery O2 Flow Rate FiO2 06/19/16 23:06 97.6 86 18 105/67 99 Room Air Orders Complete Blood Count With Diff (06/19/16 23:02) Comprehensive Metabolic Panel (06/19/16 23:02) Urinalysis - C+S If Indicated (06/19/16 23:02) Drug Screen, Random Urine (06/19/16 23:02) Ed Urine Pregnancytest Poc (06/19/16 23:02) Alcohol (Ethanol) (06/19/16 23:02) Salicylates (Aspirin) (06/19/16 23:02) Tylenol (Acetaminophen) (06/19/16 23:02) Valproic Acid (Depakene) (06/19/16 23:02) Psych Screen (06/19/16 23:02) Iv Access Insert/Monitor (06/19/16 23:02) Sodium Chlor 0.9% 1000 Ml Inj (Ns 1000 M (06/19/16 23:15) Potassium, Serum (K) (06/20/16 01:03) Electrocardiogram (06/20/16 01:03) Labs Laboratory Tests Test 06/19/16 06/19/16 06/20/16 23:20 23:24 01:14 White Blood Count 7.5 TH/MM3 Red Blood Count 3.90 MIL/MM3 Hemoglobin 12.8 GM/DL Hematocrit 37.9 % Mean Corpuscular Volume 97.2 FL Mean Corpuscular Hemoglobin 32.7 PG Mean Corpuscular Hemoglobin 33.7 % Concent Red Cell Distribution Width 16.3 % Platelet Count 213 TH/MM3 Mean Platelet Volume 8.9 FL Neutrophils (%) (Auto) 55.7 % Lymphocytes (%) (Auto) 33.9 % Monocytes (%) (Auto) 8.6 % Eosinophils (%) (Auto) 1.3 % Basophils (%) (Auto) 0.5 % Neutrophils # (Auto) 4.2 TH/MM3 Lymphocytes # (Auto) 2.5 TH/MM3 Monocytes # (Auto) 0.6 TH/MM3 Eosinophils # (Auto) 0.1 TH/MM3 Basophils # (Auto) 0.0 TH/MM3 CBC Comment DIFF FINAL Differential Comment Salicylates Level LESS THAN 1.7 MG/DL Sodium Level 142 MEQ/L Potassium Level 6.1 MEQ/L 3.6 MEQ/L Chloride Level 109 MEQ/L Carbon Dioxide Level 28.1 MEQ/L Anion Gap 5 MEQ/L Blood Urea Nitrogen 11 MG/DL Creatinine 0.69 MG/DL Estimat Glomerular Filtration 93 ML/MIN Rate Random Glucose 85 MG/DL Calcium Level 7.7 MG/DL Total Bilirubin 0.3 MG/DL Aspartate Amino Transf 48 U/L (AST/SGOT) Alanine Aminotransferase 29 U/L (ALT/SGPT) Alkaline Phosphatase 96 U/L Total Protein 7.0 GM/DL Albumin 3.1 GM/DL Acetaminophen Level LESS THAN 2.0 MCG/ML Valproic Acid (Depakene) Level LESS THAN 3 MCG/ML Ethyl Alcohol Level 396 MG/DL Urine Color LIGHT-YELLOW Urine Turbidity CLEAR Urine pH 6.0 Urine Specific Lucien 1.006 Urine Protein NEG mg/dL Urine Glucose (UA) NEG mg/dL Urine Ketones NEG mg/dL Urine Occult Blood NEG Urine Nitrite NEG Urine Bilirubin NEG Urine Urobilinogen LESS THAN 2.0 MG/DL Urine Leukocyte Esterase NEG Urine RBC 1 /hpf Urine WBC 1 /hpf Urine Squamous Epithelial 3 /hpf Cells Urine Bacteria RARE /hpf Microscopic Urinalysis Comment CULT NOT INDICATED Urine Opiates Screen NEG Urine Barbiturates Screen NEG Urine Amphetamines Screen NEG Urine Benzodiazepines Screen POS Urine Cocaine Screen NEG Urine Cannabinoids Screen NEG MDM Medical Record Reviewed: Yes Supervised Visit with CLAUDIA: No Differential Diagnosis Depression with suicidal ideations, versus sepsis induced mood disorder Narrative Course During the course of the patients emergency department visit, the patients history, examination, and differential diagnosis were reviewed with the patient. The patient had IV access obtained and blood work sent for analysis. The patient was initially evaluated by Janee. Please see her complete history and physical. The patient is here for evaluation under a Humphreys act. The patient reportedly attempted to harm herself by choking herself with electrical cords. The patient denies being suicidal at this time. The patient reports that she has a history of alcohol abuse. She reports that she has been depressed related to her 20 year marriage ending. He reports that she has been abusing alcohol because of it. She reports that a few days ago she was started on Latuda, however it made her more depressed. The patient was provided normal saline 1 L IV fluid bolus.. The patients laboratory studies were reviewed and remarkable for white count is 7.5, hemoglobin 12.8, platelets 213, CMP is remarkable for potassium 6.1, chloride 109, calcium 7.7, AST 48, albumin 3.1. As the patient has no renal failure, a repeat potassium has been ordered to evaluate for validity. An EKG was done that shows a normal sinus rhythm without any acute changes, no signs of peaked T waves to suggest hyperkalemia, urine drug screen is positive for benzodiazepines, salicylates less than 1.7, acetaminophen less than 2, valproic acid less than 3, alcohol level [id number], urinalysis unremarkable. Repeat potassium is noted to be 3.6 The patient is aware of what a Humphreys act is. She is aware that she is waiting for a psychiatric screen. The patient has been medically cleared for admission to the psychiatric service under a Humphreys act. Diagnosis Primary Impression: Alcohol intoxication Qualified Code: F10.129 - Alcohol intoxication, with unspecified complication Additional Impressions: History of bipolar disorder Suicide attempt Condition: Stable Moni Soto MD Jun 20, 2016 01:31
--- NOTE | 2016-06-20 11:21 | EKG ---
Date Performed: 06/20/2016 Time Performed: 01:09:40 PTAGE: 41 years EKG: Sinus rhythm NORMAL ECG PREVIOUS TRACING : 05/26/2016 15.50 Compared to prior tracing no significant change DOCTOR: Porfirio Chao Interpretating Date/Time 06/20/2016 11:19:51
[2016-06-20] MEDS ORDERED: FLUMAZENIL 1 MG/10 ML VIAL IV PUSH PRN (13:00)
[2016-06-20] MEDS ORDERED: LORazepam 1 MG TAB PO PRN (13:00)
[2016-06-20] MEDS ORDERED: ONDANSETRON HCL 4 MG/2 ML VIAL IV PUSH PRN (13:00)
[2016-06-20] MEDS ORDERED: ACETAMINOPHEN 325 MG TAB PO PRN (13:00)
[2016-06-20] MEDS ORDERED: LORazepam 2 MG/ML VIAL IV PUSH PRN ×4 (13:00)
[2016-06-20] MEDS ORDERED: LORazepam 2 MG TAB PO PRN (13:00)
--- NOTE | 2016-06-20 17:22 | PD ---
History of Present Illness Chief Complaint: Psychiatric Symptoms Time Seen by Provider: 17:00 Travel History International Travel<30 Days: No Contact w/Intl Traveler<30days: No Known affected area: No Legal Status Legal Status: Humphreys Act Humphreys Act Signed By: Ailyn Apodaca History of Present Illness: History of Present Illness HPI 41-year-old female with history of bipolar disorder , alcohol dependence, presents to emergency department under Humphreys act initiated by VALERIANO for psychiatric evaluation. As per the report " Carina was at her estranged ' s house and stated that she wanted to because the marriage was over. Carina then wrapped electric cord around her neck and attempted to choke herself". This was witnessed by her who contacted the police. When police arrived , patient had electrical cords wound her neck but was awake, combative, and belligerent towards them. Patient presented with BAL of 386. Patient seen in J pod. At this time she is clinically sober. Speech is clear and logical. Gait is steady. No tremors. She is engaging and cooperative. No indication of any hallucinations, no delusions and no paranoia. There is no anthony or hypomania. She reports that she does not remember that she had an electrical around her neck and denies any suicidal ideation. There are no visible markings on her neck. States " I do not want to kill myself. I am happy. I was actually celebrating that I just got a new apartment". I also have a grandson who is 5 years old and I want to see him grow up'. As per record review the patient was admitted to [facility] under the care of Dr. Zepeda on Jun 12, 2016. In terms of substance use patient with hx of alcohol dependence x 20 years. has a sponsor and has had episodes of sobriety lasting 1 year. PFSH Past Medical History Hx Anticoagulant Therapy: No Anemia: Yes (secondary to heavy menstrual cycle) Bipolar Disorder: Yes (NON MEDICATED) Anxiety: Yes Depression: Yes Cardiovascular Problems: No Chemotherapy: No Cerebrovascular Accident: No Diabetes: No Diminished Hearing: No Endocrine: No Gastrointestinal Disorders: Yes (hx of gastric bypass) Genitourinary: Yes (ANEMIA) Immune Disorder: No Neurologic: Yes Psychiatric: No Respiratory: No Immunizations Current: Yes Renal Failure: Yes (Stage 2 KD) Seizures: Yes (R/T ETOH WITHDRAWL) Thyroid Disease: No Influenza Vaccination: No ?: Not Menopausal: Yes : 2 Para: 2 Past Surgical History Section: Yes Cholecystectomy: Yes Endocrine Surgery: Yes (gall bladder removed) Hysterectomy: Yes Other Surgery: Yes (gastric bypass) Psychiatric History Psychiatric History Hx Psychiatric Treatment: DIAGNOSED WITH ANXIETY, BIPOLAR D/O AND DEPRESSION PER RECORDS Is under the care of Dr. Escobedo History of Inpatient Treatment: Yes (Last admission on Jun 12, 2016 at [facility]. ) Social History female. Does not work. Hx Alcohol Use: Yes (recent relapse. ) Hx Tobacco Use: No Hx Substance Use: Yes Substance Use Type: Alcohol, Benzos (Valium,Xanax) Hx of Substance Use Treatment: Yes Family Psychiatric History Mo w hx of depression. Allergies-Medications (Allergen,Severity, Reaction): Coded Allergies: Aspirin (Verified Allergy, Unknown, Nausea/Vomiting, 06/19/16) Reported Meds & Prescriptions Reported Meds & Active Scripts Active Hydroxyzine HCl 50 Mg Tab 50 Mg PO BID PRN 15 Days Folate (Folic Acid) 1 Mg Tab 1 Mg PO DAILY 15 Days Vitamin B-1 (Thiamine HCl) 100 Mg Tab 100 Mg PO DAILY 15 Days Latuda (Lurasidone) 40 Mg Tab 40 Mg PO WITH DINNER 0 Days Order to update med rec only. Patient has adequate supply at home. Reported Depakote ER (Divalproex Sodium) 250 Mg Xiomara 250 Mg PO DAILY Review of Systems Except as stated in HPI: all other systems reviewed are Neg Exam Alert: Yes [place]: Person (ox4) Mood: Calm Affect: Euthymic Speech: Clear, Logical Eye Contact: Normal Memory Intact: Comment (no impairment) Hallucinations: Other (negative) Suicidal: Ideation (deneis any) Homicidal: Ideation (deneis any) [facility] Medical Decision Making Medical Record Reviewed: Yes Assessment/Plan 41 year old with hx of bipolar disorder and alcohol dependence who presents under a BA. Patient alledgedly tied electrical cord around her neck in context of alcohol intoxication. She presented with BAL of 396. At this time patient is clinically sober and she denies any suicidal or homicidal ideation, intent or plan. At this time she does not meet criteria. Will be discharged. Follow up with AA. Follow up with Dr. Escobedo. Orders Complete Blood Count With Diff (06/19/16 23:02) Comprehensive Metabolic Panel (06/19/16 23:02) Urinalysis - C+S If Indicated (06/19/16 23:02) Drug Screen, Random Urine (06/19/16 23:02) Ed Urine Pregnancytest Poc (06/19/16 23:02) Alcohol (Ethanol) (06/19/16 23:02) Salicylates (Aspirin) (06/19/16 23:02) Tylenol (Acetaminophen) (06/19/16 23:02) Valproic Acid (Depakene) (06/19/16 23:02) Psych Screen (06/19/16 23:02) Iv Access Insert/Monitor (06/19/16 23:02) Sodium Chlor 0.9% 1000 Ml Inj (Ns 1000 M (06/19/16 23:15) Potassium, Serum (K) (06/20/16 01:03) Electrocardiogram (06/20/16 01:03) Diet Regular Basic (06/20/16 Breakfast) Diet Regular Basic (06/20/16 Lunch) Alcohol Withdrawal Asmt-Ciwa ONCE (06/20/16 12:54) Ondansetron Inj (Zofran Inj) (06/20/16 13:00) Acetaminophen (Tylenol) (06/20/16 13:00) Flumazenil Inj (Romazicon Inj) (06/20/16 13:00) Lorazepam (Ativan) (06/20/16 13:00) Lorazepam Inj (Ativan Inj) (06/20/16 13:00) Lorazepam (Ativan) (06/20/16 13:00) Lorazepam Inj (Ativan Inj) (06/20/16 13:00) Lorazepam Inj (Ativan Inj) (06/20/16 13:00) Lorazepam Inj (Ativan Inj) (06/20/16 13:00) Diet Regular Basic (06/20/16 Dinner) Results Vital Signs Date Time Temp Pulse Resp B/P Pulse Ox O2 Delivery O2 Flow Rate FiO2 06/19/16 23:06 97.6 86 18 105/67 99 Room Air Laboratory Tests Test 06/19/16 06/19/16 06/20/16 23:20 23:24 01:14 White Blood Count 7.5 Red Blood Count 3.90 Hemoglobin 12.8 Hematocrit 37.9 Mean Corpuscular Volume 97.2 Mean Corpuscular Hemoglobin 32.7 Mean Corpuscular Hemoglobin 33.7 Concent Red Cell Distribution Width 16.3 Platelet Count 213 Mean Platelet Volume 8.9 Neutrophils (%) (Auto) 55.7 Lymphocytes (%) (Auto) 33.9 Monocytes (%) (Auto) 8.6 Eosinophils (%) (Auto) 1.3 Basophils (%) (Auto) 0.5 Neutrophils # (Auto) 4.2 Lymphocytes # (Auto) 2.5 Monocytes # (Auto) 0.6 Eosinophils # (Auto) 0.1 Basophils # (Auto) 0.0 CBC Comment DIFF FINAL Differential Comment Salicylates Level LESS THAN 1.7 Sodium Level 142 Potassium Level 6.1 3.6 Chloride Level 109 Carbon Dioxide Level 28.1 Anion Gap 5 Blood Urea Nitrogen 11 Creatinine 0.69 Estimat Glomerular Filtration 93 Rate Random Glucose 85 Calcium Level 7.7 Total Bilirubin 0.3 Aspartate Amino Transf 48 (AST/SGOT) Alanine Aminotransferase 29 (ALT/SGPT) Alkaline Phosphatase 96 Total Protein 7.0 Albumin 3.1 Acetaminophen Level LESS THAN 2.0 Valproic Acid (Depakene) Level LESS THAN 3 Ethyl Alcohol Level 396 Urine Color LIGHT-YELLOW Urine Turbidity CLEAR Urine pH 6.0 Urine Specific [place] 1.006 Urine Protein NEG Urine Glucose (UA) NEG Urine Ketones NEG Urine Occult Blood NEG Urine Nitrite NEG Urine Bilirubin NEG Urine Urobilinogen LESS THAN 2.0 Urine Leukocyte Esterase NEG Urine RBC 1 Urine WBC 1 Urine Squamous Epithelial 3 Cells Urine Bacteria RARE Microscopic Urinalysis Comment CULT NOT INDICATED Urine Opiates Screen NEG Urine Barbiturates Screen NEG Urine Amphetamines Screen NEG Urine Benzodiazepines Screen POS Urine Cocaine Screen NEG Urine Cannabinoids Screen NEG Diagnosis Primary Impression: Alcohol intoxication Additional Impressions: History of bipolar disorder Suicide attempt Psychiatrically Cleared: Yes Referrals: [facility] (Out patient) call for appointment Departure Forms: Tests/Procedures Patient Instructions: General Instructions, Abuse of Alcohol (ED) Disposition: 01 DISCHARGE HOME Condition: Stable Problem Qualifiers Primary Impression: Alcohol intoxication Qualified Code: F10.129 - Alcohol intoxication, with unspecified complication Gracie Flowers 11, 2017 17:22
== END 2016-06-20 18:37 | disposition home or self-care (01) ==
LOC: NEPD 22:38 → NEPJ 06-20 18:37
DX: F10.129 Alcohol abuse with intoxication, unspecified (principal); F31.9 Bipolar disorder, unspecified; F41.8 Other specified anxiety disorders; Y90.8 Blood alcohol level of 240 mg/100 ml or more; S19.80XA Other specified injuries of unspecified part of neck, initial encounter; X83.8XXA Intentional self-harm by other specified means, initial encounter
CPT/HCPCS: 80053; 80164; 80307; 80329; 81001; 84132; 84703; 85025; 93005; 96360; 99284; J7030; 80320; G0480

== ENCOUNTER 2016-09-17 01:57 | Observation (INO) | payer BC, OTHER ==
[~2016-09-17] VITALS: Ht 162.6 cm; Wt 75.0 kg
[2016-09-17] VITALS (10 sets, daily range): BP systolic 77–110; BP diastolic 41–63; PULSE 72–93; RESP 16–22; TEMP 97.6–98.8; O2SAT 94–99
[~2016-09-17 01:57] MED LIST changes: +DIVA250ER PO
[2016-09-17] MEDS ORDERED: SODIUM CHLOR 0.9% 1000 ML INJ 1,000 ML IV ONE (02:30)
[2016-09-17] MEDS ORDERED: THIAMINE INJ 100 MG in SODIUM CHLORIDE 0.9% INJ 100 ML IV ONE (02:30)
[2016-09-17 02:56] LABS: AUTOMATED NEUTROPHIL # 3.9 TH/MM3 (1.8-7.7); BASOPHIL # 0.1 TH/MM3 (0-0.2); BASOPHIL % 0.8 % (0.0-2.0); EOSINOPHIL # 0.1 TH/MM3 (0-0.4); EOSINOPHIL % 1.8 % (0.0-4.0); HEMATOCRIT 36.8 % (35.0-46.0); HEMO FLAGS DIFF FINAL; LYMPH % 37.4 % (9.0-44.0); LYMPHOCYTE # 2.6 TH/MM3 (1.0-4.8); MEAN CELL VOLUME 96.1 FL (80.0-100.0); MEAN CORPUSCULAR HEMOGLOBIN 32.8 PG (27.0-34.0); MEAN CORPUSCULAR HGB CONC 34.2 % (32.0-36.0); MONO % 4.3 % (0.0-8.0); NEUT % 55.7 % (16.0-70.0); PLATELET COUNT 264 TH/MM3 (150-450); RED BLOOD COUNT 3.83 MIL/MM3 (4.00-5.30); WHITE BLOOD COUNT 7.1 TH/MM3 (4.0-11.0)
--- NOTE | 2016-09-17 03:07 | PD ---
HPI Chief Complaint: Seizure Time Seen by Provider: 02:14 Travel History International Travel<30 days: No Contact w/Intl Traveler<30days: No Traveled to known affect area: No History of Present Illness HPI The patient is a 41 year old female who presents to the [facility] emergency department with a history of reported seizure activity that occurred prior to arrival at the [facility]. The patient reports that she just arrived at the [facility] under a Humphreys act. The Humphreys act was reviewed and the patient according to it had attempted to harm herself by hanging herself with a rope. According to ambulance services, the patient had generalized tonic-clonic seizure activity. The patient was given Ativan 2 mg IM and 2 separate doses at that facility and then ambulance services arrived. The patient was noted to be drowsy on their arrival. She did not bite her tongue or lose control of her bowel or bladder. As the patient became more awake and alert she reports that she does have a history of seizure activity related to alcohol use. She reports that she is on TopNimblex for this. She reports that she normally drinks a fifth of vodka per day. She reports that she last drank alcohol between noon and 3 PM yesterday. The patient on arrival and on review of systems reports that she does have chest wall pain. The patient is noted to have bruising to the center of her chest. She reports that it was related to sternal rubs that were administered to help wake her up at [facility]. The patient denies any recent fevers, cough, congestion, neck pain,shortness of breath, abdominal pain, vomiting, diarrhea, urinary symptoms, or other neurologic symptoms. [facility] Past Medical History Narrative Medical The patient's past medical history is significant for alcohol abuse, history of seizure disorder related to alcohol abuse, history of bipolar disorder, anemia requiring blood transfusions and iron transfusions. Hx Anticoagulant Therapy: No Anemia: Yes (secondary to heavy menstrual cycle) Bipolar Disorder: Yes (NON MEDICATED) Anxiety: Yes Depression: Yes Cardiovascular Problems: No Chemotherapy: No Cerebrovascular Accident: No Diabetes: No Diminished Hearing: No Endocrine: No Gastrointestinal Disorders: Yes (hx of gastric bypass) Genitourinary: Yes (ANEMIA) Immune Disorder: No Neurologic: Yes Psychiatric: No Respiratory: No Immunizations Current: Yes Renal Failure: Yes (Stage 2 KD) Seizures: Yes (R/T ETOH WITHDRAWL) Thyroid Disease: No Tetanus Vaccination: Unknown Influenza Vaccination: No ?: Not Menopausal: Yes : 2 Para: 2 Past Surgical History Narrative Surgical The patient's past surgical history is significant for a , cholecystectomy, hysterectomy, gastric bypass in 2004 Section: Yes Cholecystectomy: Yes Endocrine Surgery: Yes (gall bladder removed) Hysterectomy: Yes Other Surgery: Yes (gastric bypass) Social History Alcohol Use: Yes (recent relapse. ) Tobacco Use: No Substance Use: Yes Allergies-Medications (Allergen,Severity, Reaction): Coded Allergies: Aspirin (Verified Allergy, Unknown, Nausea/Vomiting, 09/17/16) Reported Meds & Prescriptions Reported Meds & Active Scripts Active Hydroxyzine HCl 50 Mg Tab 50 Mg PO BID PRN 15 Days Folate (Folic Acid) 1 Mg Tab 1 Mg PO DAILY 15 Days Reported Depakote ER (Divalproex Sodium) 250 Mg Xiomara 250 Mg PO DAILY The patient reports that she is on Topamax. Review of Systems Except as stated in HPI: all other systems reviewed are Neg General / Constitutional: No: Fever Eyes: No: Visual changes HENT: No: Headaches, Congestion Cardiovascular: Positive: Chest Pain or Discomfort (chest wall pain) Respiratory: No: Shortness of Breath Gastrointestinal: No: Nausea, Vomiting, Diarrhea, Abdominal Pain Genitourinary: No: Dysuria Musculoskeletal: No: Pain Skin: No Rash Neurologic: Positive: Seizures, No: Weakness, Focal Abnormalities, Change in Mentation, Slurred Speech, Sensory Disturbance Psychiatric: No: Depression Endocrine: No: Polydipsia Hematologic/Lymphatic: No: Easy Bruising Physical Exam Narrative General: The patient is well-developed well-nourished female in no acute distress. Head and Neck exam: Head is normocephalic atraumatic. Eyes: EOMI, pupils are equal round and reactive to light. Nose: Midline septum with pink mucous membranes Mouth: No evidence of tongue biting or trauma to her tongue. Dentition unremarkable. Moist mucus membranes. Posterior oropharynx is not erythematous. No tonsillar hypertrophy. Uvula midline. Airway patent. Neck: No palpable lymphadenopathy. No nuchal rigidity. No thyromegaly. Cardiovascular: Regular rate and rhythm without murmurs, gallops, or rubs. No pulse deficit to the extremities and simultaneous auscultation and palpation of her radial artery. On examination of the patient's chest wall, the patient is noted to have bruising over the upper aspect of the sternum without any crepitus or step- off. This appears to be superficial. Lungs: Clear to auscultation bilaterally. No wheezes, rhonchi, or rales. Abdomen: Soft, without tenderness to palpation in all 4 quadrants of the abdomen. No guarding, rebound, or rigidity. Normal bowel sounds are audible. No tenderness on palpation of McBurney's point. Extremities: No clubbing, cyanosis, or edema. 2+ pulses in all 4 extremities. No calf tenderness on palpation. Back: No spinous process tenderness to palpation. No costovertebral angle tenderness to palpation. Neurologic Exam: Cranial nerves 2-12 were intact on exam. Strength is 5/5 in all 4 extremities. No sensory deficits noted. No tremulousness noted. Skin Exam: No rash noted. Intact skin that is warm and dry. Data Data Last Documented VS Vital Signs Date Time Temp Pulse Resp B/P Pulse Ox O2 Delivery O2 Flow Rate FiO2 09/17/16 04:00 92 16 93/56 94 Nasal Cannula 2 09/17/16 02:14 98.3 Orders Complete Blood Count With Diff (09/17/16 02:23) Basic Metabolic Panel (Bmp) (09/17/16 02:23) Urinalysis - C+S If Indicated (09/17/16 02:23) Beta Hcg (Quant/Titer) (09/17/16 02:23) Magnesium (Mg) (09/17/16 02:23) Iv Access Insert/Monitor (09/17/16 02:23) Ecg Monitoring (09/17/16 02:23) Oximetry (09/17/16 02:23) Drug Screen, Random Urine (09/17/16 02:23) Alcohol (Ethanol) (09/17/16 02:23) Sodium Chlor 0.9% 1000 Ml Inj (Ns 1000 M (09/17/16 02:30) Thiamine Inj (Thiamine Inj) (09/17/16 02:30) Admit Order (Ed Use Only) (09/17/16 04:50) Labs Laboratory Tests Test 09/17/16 02:45 White Blood Count 7.1 TH/MM3 Red Blood Count 3.83 MIL/MM3 Hemoglobin 12.6 GM/DL Hematocrit 36.8 % Mean Corpuscular Volume 96.1 FL Mean Corpuscular Hemoglobin 32.8 PG Mean Corpuscular Hemoglobin 34.2 % Concent Red Cell Distribution Width 16.0 % Platelet Count 264 TH/MM3 Mean Platelet Volume 8.2 FL Neutrophils (%) (Auto) 55.7 % Lymphocytes (%) (Auto) 37.4 % Monocytes (%) (Auto) 4.3 % Eosinophils (%) (Auto) 1.8 % Basophils (%) (Auto) 0.8 % Neutrophils # (Auto) 3.9 TH/MM3 Lymphocytes # (Auto) 2.6 TH/MM3 Monocytes # (Auto) 0.3 TH/MM3 Eosinophils # (Auto) 0.1 TH/MM3 Basophils # (Auto) 0.1 TH/MM3 CBC Comment DIFF FINAL Differential Comment Sodium Level 144 MEQ/L Potassium Level 4.0 MEQ/L Chloride Level 106 MEQ/L Carbon Dioxide Level 26.2 MEQ/L Anion Gap 12 MEQ/L Blood Urea Nitrogen 6 MG/DL Creatinine 0.58 MG/DL Estimat Glomerular Filtration 113 ML/MIN Rate Random Glucose 87 MG/DL Calcium Level 8.3 MG/DL Magnesium Level 2.2 MG/DL Human Chorionic Gonadotropin, LESS THAN 1 Quant MIU/ML Ethyl Alcohol Level 258 MG/DL MDM Medical Decision Making Medical Screen Exam Complete: Yes Emergency Medical Condition: Yes Medical Record Reviewed: Yes Differential Diagnosis Alcohol-related withdrawal seizure, versus seizure disorder, versus electrolyte abnormality Narrative Course During the course of the patients emergency department visit, the patients history, examination, and differential diagnosis were reviewed with the patient. The patient had IV access obtained and blood work sent for analysis. 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 The patient was provided normal saline IV fluids, thiamine 100 mg IV. The patients laboratory studies were reviewed and remarkable for a white count of 7.1, hemoglobin 12.6, platelets 264 with a normal differential, BMP is remarkable for BUN of 6, calcium 8.3, magnesium 2.2, quantitative beta hCG less than 1, alcohol level is 258. A call was placed out to the [facility]. They reported that they would not accept the patient back to their facility as the patient was beyond her scope of care. The patient will therefore be admitted to the hospitalist service with a consultation to psychiatry. The patients results were discussed with the patient, including the plan of care. I explained that further testing and/ or monitoring is indicated based on the patients history, examination, and/ or laboratory findings. Therefore, I recommended admission for additional evaluation. The patient expressed understanding and was agreeable with this plan. The patient was admitted to the hospital in stable condition and sent to a bed under the care of the [facility]ist service. Physician Communication Physician Communication The patient's case was discussed with Dr. Keen who did agree to admit the patient for further evaluation and treatment at this time. Diagnosis Primary Impression: Seizure disorder Additional Impression: Alcohol abuse Admitting Information Admitting Physician Requests: it Moni Soto MD Sep 17, 2016 03:07
[2016-09-17 03:18] LABS: BETA HCG QUANT LESS THAN 1 MIU/ML (0-5)
[2016-09-17 03:25] LABS: ANION GAP 12 MEQ/L (5-15); BICARBONATE 26.2 MEQ/L (21.0-32.0); BLOOD UREA NITROGEN 6 MG/DL (7-18); CHLORIDE 106 MEQ/L (98-107); GLOMERULAR FILTRATION RATE 113 ML/MIN (>89); MAGNESIUM 2.2 MG/DL (1.5-2.5); SODIUM (NA) 144 MEQ/L (136-145)
[2016-09-17] MEDS ORDERED: ONDANSETRON HCL 4 MG/2 ML VIAL IVP PRN (05:00)
[2016-09-17] MEDS ORDERED: BISACODYL 10 MG SUPP RECTAL PRN (05:00)
[2016-09-17] MEDS ORDERED: LORazepam 2 MG TAB PO PRN (05:00)
[2016-09-17] MEDS ORDERED: LORazepam 1 MG TAB PO PRN (05:00)
[2016-09-17] MEDS ORDERED: HALOPERIDOL LACTATE 5 MG/ML AMP IM PRN (05:00)
[2016-09-17] MEDS ORDERED: SODIUM CHLORIDE 0.9% FLUSH 10 ML FLUSH IV FLUSH PRN (05:00)
[2016-09-17] MEDS ORDERED: LORazepam 2 MG/ML VIAL IV PUSH PRN ×4 (05:00)
[2016-09-17] MEDS ORDERED: FLUMAZENIL 0.5 MG/5 ML VIAL IV PUSH PRN (05:00)
[2016-09-17] MEDS ORDERED: ACETAMINOPHEN 325 MG TAB PO PRN (05:00)
--- NOTE | 2016-09-17 05:11 | HHI.HP ---
HPI Service [facility] Primary Care Physician Non-Staff Admission Diagnosis Etoh intoxication, seizure activity, Humphreys act Diagnoses: (1) Seizure Diagnosis: Principal (2) Alcohol intoxication Diagnosis: Principal (3) Non-compliance Diagnosis: Principal (4) Hypotension Diagnosis: Principal (5) Suicide attempt Diagnosis: Principal Travel History International Travel<30 Days: No Contact w/Intl Traveler <30 Da: No Traveled to Known Affected Are: No History of Present Illness This is a 41-year-old female with a PMH of Alcohol Abuse, Alcohol Related Seizure, Bipolar Disorder and Noncompliance who is brought to the ER by EMS from [facility] for witnessed seizure. Patient is currently under Humphreys Act for Suicide Attempt after trying to hang herself w/ a rope. S/p Ativan 2mg x2 prior to arrival in ER, no further seizure activity noted. On Topamax for seizures however non-compliant. Admits to drinking 1/5th of Vodka daily, last drink yesterday. On arrival, BP 95/59, HR 93, O2 sat 94% on RA, Afebrile. CBC unremarkable. Chemistry essentially unremarkable. Alcohol 258. Review of Systems Except as stated in HPI: all other systems reviewed are Neg ROS: 14 point review of systems otherwise negative. Past Family Social History Past Medical History PMH: Alcohol Abuse, Alcohol Related Seizure, Bipolar Disorder and Noncompliance Past Surgical History PAST SURGICAL HISTORY: , Cholecystectomy, Hysterectomy, Gastric Bypass Allergies: Coded Allergies: Aspirin (Verified Allergy, Unknown, Nausea/Vomiting, 09/17/16) Family History PAST FAMILY HISTORY: Reviewed. No h/o DM or CAD Social History PAST SOCIAL HISTORY: Drinks daily, 1/5th Vodka per day. Denies tobacco or drugs. Physical Exam Vital Signs Vital Signs Date Time Temp Pulse Resp B/P Pulse Ox O2 Delivery O2 Flow Rate FiO2 09/17/16 02:14 98.3 93 16 95/59 94 Physical Exam PE: GENERAL: Sleeping comfortably, rouses easily, in no acute distress. HEENT: PERRLA, EOMI. No scleral icterus or conjunctival pallor. No lid lag or facial droop. CARDIOVASCULAR: Regular rate and rhythm. No obvious murmurs to auscultation. No chest tenderness to palpation. RESPIRATORY: No obvious rhonchi or wheezing. Clear to auscultation. Breath sounds equal bilaterally. GASTROINTESTINAL: Abdomen soft, non-tender, nondistended. BS normal. MUSCULOSKELETAL: Extremities without clubbing, cyanosis, or edema. No obvious deformities. NEUROLOGICAL: Sleeping but rouses easily. No focal neurologic deficits. Moving both upper and lower extremities spontaneously. Laboratory Laboratory Tests Test 09/17/16 02:45 White Blood Count 7.1 Red Blood Count 3.83 Hemoglobin 12.6 Hematocrit 36.8 Mean Corpuscular Volume 96.1 Mean Corpuscular Hemoglobin 32.8 Mean Corpuscular Hemoglobin 34.2 Concent Red Cell Distribution Width 16.0 Platelet Count 264 Mean Platelet Volume 8.2 Neutrophils (%) (Auto) 55.7 Lymphocytes (%) (Auto) 37.4 Monocytes (%) (Auto) 4.3 Eosinophils (%) (Auto) 1.8 Basophils (%) (Auto) 0.8 Neutrophils # (Auto) 3.9 Lymphocytes # (Auto) 2.6 Monocytes # (Auto) 0.3 Eosinophils # (Auto) 0.1 Basophils # (Auto) 0.1 CBC Comment DIFF FINAL Differential Comment Sodium Level 144 Potassium Level 4.0 Chloride Level 106 Carbon Dioxide Level 26.2 Anion Gap 12 Blood Urea Nitrogen 6 Creatinine 0.58 Estimat Glomerular Filtration 113 Rate Random Glucose 87 Calcium Level 8.3 Magnesium Level 2.2 Human Chorionic Gonadotropin, LESS THAN 1 Quant Ethyl Alcohol Level 258 Result Diagram: 09/17/1624409/17/16244 Assessment and Plan Problem List: (1) Seizure ICD Code: R56.9 Status: Acute (2) Alcohol intoxication ICD Code: F10.129 Status: Acute (3) Non-compliance ICD Code: Z91.19 Status: Acute (4) Hypotension ICD Code: I95.9 Status: Acute (5) Suicide attempt ICD Code: T14.91 Status: Acute Assessment and Plan A/P: 1. Seizure: h/o Alcohol-Related Seizure, Alcohol level 258, normally drinks 1/ 5th Vodka, last drink yesterday. Witnessed seizure x1, s/p Ativan 2mg x2 dose, no recurrent seizure. +Non-compliance w/ Topamax, restart home medications. Seizure Precautions, Ativan prn. 2. Alcohol Intoxication: Alcohol Abuse w/ Acute Intoxication, high risk for possible withdrawal, start CIWA, Seizure Precautions, MVT/Thiamine/Folate replacement. Pt w/ plans to return to [facility] for detox. 3. Non-compliance: As above, pt non-compliant w/ medications, will resume home Topamax. 4. Hypotension: BP 90's systolic while in ER, IVF, monitor BP. 5. Suicide Attempt: Currently under Humphreys Act for suicide attempt, per report pt attempted to hang herself w/ a rope, document in chart. 6. DVT Prophylaxis: SCD/Teds. 7. Social work for d/c planning as needed. 8. Case discussed w/ ER physician at length. Trina Keen MD Sep 17, 2016 05:10
[2016-09-17] MEDS: SODIUM CHLOR 0.9% 1000 ML INJ 1,000 ML IV SCH ×2 (05:38→14:57)
[2016-09-17] MEDS: MULTIVITAMIN INJ 10 ML, FOLIC ACID INJ 1 MG in SODIUM CHLORID 0.9% 500 ML INJ 500 ML IV SCH (05:39)
[2016-09-17] MEDS: DIVALPROEX SODIUM E.R. 250 MG TAB PO SCH (07:50)
[2016-09-17] MEDS: SODIUM CHLORIDE 0.9% FLUSH 10 ML FLUSH IV FLUSH SCH ×2 (07:50→20:55)
--- NOTE | 2016-09-17 15:07 | PD.CONS ---
Provisional Diagnosis Admission Date Sep 17, 2016 at 04:52 [place] I. Alcohol-induced mood disorder, alcohol use disorder, history of PTSD, bipolar disorder [place] II. Unspecified personality disorder, r/o borderline personal disorder [place] III. Denies [place] IV. Continues use of alcohol [place] V. 55 History of Present Illness Service Psychiatry Consult Requested By Primary Care Physician Non-Staff HPI The patient is a is a 41-year-old woman, domiciled alone in [place] , , but , unemployed, with psychiatric history of PTSD, bipolar disorder, alcohol use disorder, multiple psychiatric hospitalizations, numerous ER visits under Humphreys act, last hospitalization was here at [facility] in June 2016, she was under the care of Dr. Crook, documentation was reviewed, numerous suicide attempts, medical history of alcohol related seizures who is brought to the ER by EMS from [facility] for witnessed seizure. Patient is currently under Humphreys Act for Suicide Attempt after trying to hang herself w / a rope. S/p Ativan 2mg x2 prior to arrival in ER, no further seizure activity noted. On Topamax for seizures however non-compliant. Admits to drinking 1/5th of Vodka daily, last drink yesterday. On arrival, BP 95/59, HR 93, O2 sat 94% on RA, Afebrile. CBC unremarkable. Chemistry essentially unremarkable. Alcohol 258. Patient consulted to psychiatry to assess suicidal ideation. On psychiatric evaluation patient is found in her bed, she is calm, superficially cooperative, kind of irritable. Patient states that she had a seizure episode and she doesn't remember the details and the recent she was Humphreys acted. Patient says that she never said that she wanted to kill herself. Patient is future oriented and stated that she wants to go to a detox program and then she wants to go to [facility] for rehabilitation program. At this moment the patient denies depressive symptoms, she denies anhedonia, she denies hopelessness, she denies helplessness, she denies suicidal and homicidal ideation, she denies visual and auditory hallucinations. No paranoia, no delusions, no agitation, no aggressive behavior, no symptomatology of withdrawal observed or reported. Patient is fully oriented 3. He reports daily use of alcohol, about 3 pints of vodka. She has been drinking this way since 2006, she had some periods of sobriety, including 1 of about 6 months in 2014 after a rehabilitation program. She denies the use of illicit drugs. Review of Systems Constitutional: DENIES: Diaphoretic episodes, Fatigue, Fever, Weight gain, Weight loss, Chills, Dizziness, Change in appetite, Night Sweats Endocrine: DENIES: Abnorml menstrual pattern, Heat/cold intolerance, Polydipsia , Polyuria, Polyphagia Eyes: DENIES: Blurred vision, Diplopia, Eye inflammation, Eye pain, Vision loss , Photosensitivity, Double Vision Ears, nose, mouth, throat: DENIES: Tinnitus, Hearing loss, Vertigo, Nasal discharge, Oral lesions, Throat pain, Hoarseness, Ear Pain, Running Nose, Epistaxis, Sinus Pain, Toothache, Odynophagia Respiratory: DENIES: Apneas, Cough, Snoring, Wheezing, Hemoptysis, Sputum production, Shortness of breath Cardiovascular: DENIES: Chest pain, Palpitations, Syncope, Dyspnea on Exertion , PND, Lower Extremity Edema, Orthopnea, Claudication Gastrointestinal: DENIES: Abdominal pain, Black stools, Bloody stools, Constipation, Diarrhea, Nausea, Vomiting, Difficulty Swallowing, Anorexia Genitourinary: DENIES: Abnormal vaginal bleeding, Dysmenorrhea, Dyspareunia, Sexual dysfunction, Urinary frequency, Urinary incontinence, Urgency, Hematuria , Dysuria, Nocturia, Vaginal discharge Hematologic/lymphatic: DENIES: Bruising, Lymphadenopathy Immunologic/allergic: DENIES: Eczema, Urticaria Neurologic: DENIES: Abnormal gait, Headache, Localized weakness, Paresthesias, Seizures, Speech Problems, Tremor, Poor Balance Psychiatric: DENIES: Anxiety, Confusion, Mood changes, Depression, Hallucinations, Agitation, Suicidal Ideation, Homicidal Ideation, Delusions Past Family Social History Coded Allergies: Aspirin (Verified Allergy, Unknown, Nausea/Vomiting, 09/17/16) Active Scripts Hydroxyzine HCl 50 Mg Tab50 Mg PO BID PRN (ANXIETY) 15 Days Ref 1 Prov:Donal Crook MD 06/14/16 Folic Acid (Folate)1 Mg Tab1 Mg PO DAILY 15 Days Ref 1 Prov:Donal Crook MD 06/14/16 Reported Medications Divalproex ER (Depakote ER)250 Mg [id number] Mg PO DAILY #30 TAB Ref 0 06/19/16 Discontinued Scripts Thiamine (Vitamin B-1)100 Mg Dln126 Mg PO DAILY 15 Days Ref 1 Prov:Donal Crook MD 06/14/16 Lurasidone (Latuda)40 Mg Tab40 Mg PO WITH DINNER 0 Days Ref 0 Order to update med rec only. Patient has adequate supply at home. Prov:Donal Crook MD 06/14/16 Current Medications Medications (Trade) Dose Ordered Sig/Hal Route Start Time Stop Time Status Last Admin (NS 1000 ml Inj) 1,000 ml @ 100 mls/hr Q10H IV 09/17/16 04:54 09/17/16 05:38 (NS Flush) 2 ml UNSCH PRN IV FLUSH 09/17/16 05:00 (NS Flush) 2 ml BID IV FLUSH 09/17/16 09:00 (Zofran Inj) 4 mg Q6H PRN IVP 09/17/16 05:00 (Dulcolax Supp) 10 mg DAILY PRN RECTAL 09/17/16 05:00 Acetaminophen 650 mg 650 mg Q6H PRN PO 09/17/16 05:00 Multivitamins 10 ml/Folic Acid 1 mg/Sodium Chloride 510.2 ml @ 125 mls/hr Q24H IV 09/17/16 06:00 09/22/16 05:59 09/17/16 05:39 (Thiamine Inj/NS Inj) 101 ml @ 100 mls/hr Q24H IV 09/18/16 06:00 09/21/16 05:59 (Vitamin B1) 100 mg DAILY PO 09/20/16 09:00 (Romazicon Inj) 0.2 mg Q1M PRN IV PUSH 09/17/16 05:00 (Ativan) 1 mg Q4H PRN PO 09/17/16 05:00 (Ativan Inj) 1 mg Q4H PRN IV PUSH 09/17/16 05:00 (Ativan) 2 mg Q2H PRN PO 09/17/16 05:00 (Ativan Inj) 2 mg Q2H PRN IV PUSH 09/17/16 05:00 (Ativan Inj) 2 mg Q1H PRN IV PUSH 09/17/16 05:00 (Ativan Inj) 2 mg Q15M PRN IV PUSH 09/17/16 05:00 (Haldol Inj) 2 mg Q15M PRN IM 09/17/16 05:00 (Ativan Inj) 1 mg Q5M PRN IV PUSH 09/17/16 05:00 (Depakote Er) 250 mg DAILY PO 09/17/16 09:00 09/17/16 07:50 Family History She denies Social History Patient was born and raised in [place], she has been in [place] for 10 years, she is , but single, she lives alone in [place], she is unemployed, supported by , she has 2 kids, one is 21 and another one is 24, her highest level of education is high school Physical Exam Vital Signs Vital Signs Date Time Temp Pulse Resp B/P Pulse Ox O2 Delivery O2 Flow Rate FiO2 09/17/16 11:58 98.0 85 20 80/46 95 09/17/16 05:00 Nasal Cannula 2 Mental Status Examination Appearance woman, overweight, in [facility], good hygiene, irritable, superficially cooperative Speech: Unremarkable, Hesitant Memory: Unremarkable Thought Process: Logical Thought Content: Unremarkable Hallucination Type: None Attention and Concentration: Good Suicidal Ideation: No Homicidal Ideation: No Previous Homicide Attempts: No Insight: Fair Affect: Irritable Mood: Irritable Motor Activity: Normal gait Assessment & Plan Problem List: (1) Alcohol abuse with alcohol-induced mood disorder Assessment & Plan: Patient denies depressive symptoms, denies anhedonia, denies hopelessness, denies helplessness, denies suicidal and homicidal ideation , she denies visual and auditory hallucinations. No agitation, no aggressive behavior, no stiffness, no paranoia, no delusions, no symptomatology of withdrawal is observed or reported. Patient is logical, coherent, relevant, future oriented, expressing her desire to go to detox and rehabilitation program. Recent suicidal statement documented in Humphreys act was most probably made under the influence of alcohol intoxication and no due to a primary major psychiatric illness decompensation. Due to her continues use of alcohol, catheters structure, lack of family and social support, noncompliance with medication, patient has a permanent chronic risk for suicidality and impulsive behavior. At this moment she does not meet criteria for psychiatric hospitalization. She would benefit more of detox/rehabilitation. Extensive support, motivation psycho education provide. Continue CIWA protocol as needed. Consul appreciated. ICD Code: F10.14 Assessment & Plan Estimated LOS: Vince Caldwell MD Sep 17, 2016 15:07
--- NOTE | 2016-09-17 20:37 | MG ---
cc: TERRANCE CRUZ MD Lab No: Date: 09/17/2016 Age: Sex: F Race: ELECTROENCEPHALOGRAM RECORD NUMBER [id number] DATE OF 1975 HISTORY A 41-year-old history of depression, anxiety, seizures. She had apparently a witnessed seizure, Humphreys Acted. DESCRIPTION An 8-10 Hz posterior rhythm, 10-40 microvolts. Increased beta frequencies in the frontal channels. Attenuation background slowing suggestive of a drowsy state. There was some spindle activity and K complexes suggestive of stage II sleep. Good EEG variability reactivity. Mild driving with photic stimulation. Tiny sharp transient T3-T5 epoch 112. Single lead EKG showing sinus rhythm. INTERPRETATION Normal awake, sleep EEG. No active seizures. Clinical correlation. Terrance Cruz MD MG/KK /7:56 PM /8:29 PM
[2016-09-17] MEDS: LORazepam 2 MG/ML VIAL IV PUSH PRN (20:49)
[2016-09-18 00:15] VITALS: BP 110/69; PULSE 62; RESP 18; TEMP 98.3; O2SAT 95
[2016-09-18] MEDS: LORazepam 2 MG/ML VIAL IV PUSH PRN ×2 (00:35→07:55)
[2016-09-18] MEDS: SODIUM CHLOR 0.9% 1000 ML INJ 1,000 ML IV SCH (00:54)
[2016-09-18 04:41] VITALS: BP 105/68; PULSE 65; RESP 18; TEMP 98.5; O2SAT 95
[2016-09-18] MEDS ORDERED: THIAMINE INJ 100 MG in SODIUM CHLORIDE 0.9% INJ 100 ML IV SCH (06:00)
[2016-09-18] MEDS: MULTIVITAMIN INJ 10 ML, FOLIC ACID INJ 1 MG in SODIUM CHLORID 0.9% 500 ML INJ 500 ML IV SCH (07:30)
[2016-09-18] MEDS: SODIUM CHLORIDE 0.9% FLUSH 10 ML FLUSH IV FLUSH SCH (07:54)
[2016-09-18] MEDS: DIVALPROEX SODIUM E.R. 250 MG TAB PO SCH (07:54)
[2016-09-18] MEDS ORDERED: FOLI1TAB4 PO (08:28)
[2016-09-18] MEDS ORDERED: THIA100T PO (08:28)
[2016-09-18] MEDS ORDERED: CHLO25CA2 PO (08:28)
[2016-09-18 08:37] VITALS: BP 110/63; PULSE 73; RESP 16; TEMP 98.7; O2SAT 96
--- NOTE | 2016-09-18 08:41 | HHI.PR ---
Subjective Remarks Follow-up for alcohol abuse and seizure. The patient denies any further issues since admission. Reports that she slept well. She states her plan was to go to alcohol detox in [place]. She had been drinking 3 pints of liquor daily, tried to cut back, and had a seizure. She does have a history of alcohol withdrawal seizures in the past. Denies any history of seizure disorder and is not on any antiepileptic medications at home. She does take Topamax for essential tremor. She continues to plan to abstain from alcohol and plans to go to alcohol detox in [place] after discharge. Objective Vitals Vital Signs Date Time Temp Pulse Resp B/P Pulse Ox O2 Delivery O2 Flow Rate FiO2 09/18/16 04:41 98.5 65 18 105/68 95 09/18/16 00:15 98.3 62 18 110/69 95 09/17/16 19:00 98.8 82 20 110/63 99 09/17/16 15:42 97.9 80 22 95/54 94 09/17/16 11:58 98.0 85 20 80/46 95 I/O 09/17/16 09/17/16 09/17/16 09/18/16 09/18/16 09/18/16 07:00 15:00 23:00 07:00 15:00 23:00 Intake Total 393 ml Balance 393 ml Intake IV Total 393 ml # Voids 1 Result Diagram: 09/17/16 0245 09/17/16 0245 Objective Remarks GENERAL: Well-developed well-nourished. In no acute distress. SKIN: Warm and dry. No lesions noted. HEENT: Normocephalic. Pupils equal and round. Mucous membranes pink and moist. CARDIOVASCULAR: Regular rate and rhythm. No murmur appreciated. RESPIRATORY: No accessory muscle use. Clear to auscultation. Breath sounds equal bilaterally. GASTROINTESTINAL: Abdomen soft, non-tender, nondistended. Bowel sounds x4. MUSCULOSKELETAL: No obvious deformities. No clubbing or cyanosis. No edema. NEUROLOGICAL: Awake and alert. No focal neurological deficits. Moves upper and lower extremities spontaneously. Normal speech. No tremors. PSYCHIATRIC: Appropriate mood and affect; insight and judgment normal. A/P Problem List: (1) Seizure ICD Code: R56.9 Status: Acute (2) Alcohol intoxication ICD Code: F10.129 Status: Resolved (3) Hypotension ICD Code: I95.9 Status: Resolved (4) Suicide attempt ICD Code: T14.91 Status: Resolved Assessment and Plan 41-year-old female with a PMH of Alcohol Abuse, Alcohol Related Seizure, Bipolar Disorder and Noncompliance who was brought in from [facility] for witnessed seizure Seizure: Patient had likely alcohol withdrawal seizure prior to admission. No further episodes during admission. Seizure Precautions, Ativan prn. Check EEG, no epileptic activity noted. Librium for possible withdrawals. Alcohol Intoxication: Alcohol Abuse w/ Acute Intoxication. CIWA protocol. Thiamine/Folate replacement. Pt w/ plans to go to alcohol detox at discharge. Librium at discharge. Hypotension: Given IVF, BP improved. Suicide Attempt: Presented under Humphreys Act for reported suicide attempt. Psychiatry consulted, appreciate recommendations, Humphreys act lifted. Anxiety: Continue hydroxyzine as needed. Continue outpatient psychiatry follow- up. Essential tremor: Continue Topamax. Follow up with neurology as outpatient. DVT Prophylaxis: SCD/Teds. Written by Sonu Bustos, acting as scribe for Dr. Villasenor on 09/18/16 at 08:41. All or portions of this note were transcribed by COREY Duarte. I, Dr. Ernesto Villasenor personally performed the history, physical exam, and medical decision making; and confirmed the accuracy of the information in the transcribed note. Authenticated by Dr. Ernesto Villasenor on 09/18/16 at 17:22. Discharge Planning Discharge patient to home Condition on discharge: Improved Regular Diet as tolerated Regular activity Rx written: Librium, folate, thiamine Follow-up with primary care physician and alcohol detox Sonu Bustos Sep 18, 2016 08:41 Lorena Villasenor DO Sep 18, 2016 17:23
[2016-09-18 11:12] VITALS: BP 109/70; PULSE 90; RESP 18; TEMP 98.6; O2SAT 96
[2016-09-18 12:11] LABS: AUTOMATED NEUTROPHIL # 2.7 TH/MM3 (1.8-7.7); BASOPHIL # 0.1 TH/MM3 (0-0.2); BASOPHIL % 1.2 % (0.0-2.0); EOSINOPHIL # 0.1 TH/MM3 (0-0.4); HEMATOCRIT 34.1 % (35.0-46.0); HEMO FLAGS DIFF FINAL; LYMPH % 33.6 % (9.0-44.0); LYMPHOCYTE # 1.6 TH/MM3 (1.0-4.8); MEAN CELL VOLUME 97.7 FL (80.0-100.0); MEAN CORPUSCULAR HGB CONC 32.7 % (32.0-36.0); MONO % 6.3 % (0.0-8.0); NEUT % 56.9 % (16.0-70.0); PLATELET COUNT 156 TH/MM3 (150-450); RED BLOOD COUNT 3.49 MIL/MM3 (4.00-5.30); RED CELL DISTRIBUTION WIDTH 15.6 % (11.6-17.2); WHITE BLOOD COUNT 4.7 TH/MM3 (4.0-11.0)
[2016-09-18 12:47] LABS: ALT (GPT) 17 U/L (10-53); ANION GAP 10 MEQ/L (5-15); AST (GOT) 28 U/L (15-37); BICARBONATE 23.3 MEQ/L (21.0-32.0); BLOOD UREA NITROGEN 6 MG/DL (7-18); CHLORIDE 109 MEQ/L (98-107); GLOMERULAR FILTRATION RATE 148 ML/MIN (>89); POTASSIUM 3.4 MEQ/L (3.5-5.1); SODIUM (NA) 142 MEQ/L (136-145)
[2016-09-18 12:50] LABS: ALKALINE PHOSPHATASE 77 U/L (45-117); TOTAL BILIRUBIN ADULT 0.6 MG/DL (0.2-1.0)
[2016-09-20] MEDS ORDERED: THIAMINE HCL 100 MG TAB PO SCH (09:00)
== END 2016-09-18 14:26 | disposition home or self-care (01) ==
LOC: NEPE 01:57 → NEDA 04:52 → INTOOBSV 04:52 → NEPFCDU 06:15
PROVIDERS: ADMIT Hospitalist; ATTEND Hospitalist
DX: G40.409 Other generalized epilepsy and epileptic syndromes, not intractable, without status epilepticus (principal); F10.14 Alcohol abuse with alcohol-induced mood disorder; R07.89 Other chest pain; F31.9 Bipolar disorder, unspecified; D64.9 Anemia, unspecified; N92.0 Excessive and frequent menstruation with regular cycle; N19 Unspecified kidney failure; Z91.19 Patient's noncompliance with other medical treatment and regimen; I95.9 Hypotension, unspecified; Z91.5 Personal history of self-harm; R45.4 Irritability and anger
CPT/HCPCS: 80048; 80053; 80307; 83735; 84702; 85025; 95819; 96365; 99285; G0378; J2060; J3411; J7030; J7040

== ENCOUNTER 2016-12-02 21:49 | Emergency (ER) | payer BC, OTHER ==
[~2016-12-02 21:49] MED LIST changes: +CHLO25CA2 PO; -DIVA250ER PO; -LURA40 PO; +THIA100T PO; -VITA100T2 PO
[2016-12-02 22:15] VITALS: BP 111/81; PULSE 86; RESP 19; TEMP 98.9; O2SAT 95
--- NOTE | 2016-12-02 22:15 | PD ---
HPI Chief Complaint: Psychiatric Symptoms Time Seen by Provider: 22:08 Travel History International Travel<30 days: No Contact w/Intl Traveler<30days: No Traveled to known affect area: No History of Present Illness HPI So 41-year-old woman who presents to the emergency department under a Humphreys act by law enforcement after her friend reportedly called law enforcement because the patient was making statements about wanting to hang herself. Patient states that she drinks alcohol and that she is given a diet from drinking too much alcohol but denies making suicidal statements. Patient denies any recent illness or injury. No somatic complaints. History Past Medical History Narrative Medical Alcohol use Menopausal: Yes : 2 Para: 2 Social History Alcohol Use: Yes (recent relapse. ) Tobacco Use: No Allergies-Medications (Allergen,Severity, Reaction): Coded Allergies: Aspirin (Verified Allergy, Unknown, Nausea/Vomiting, 12/02/16) Reported Meds & Prescriptions Reported Meds & Active Scripts Active Review of Systems ROS Limitations: Intoxication Physical Exam Narrative GENERAL: 40 year-old woman obviously intoxicated, brought in in handcuffs, no acute distress. SKIN: Focused skin assessment warm/dry. HEAD: Atraumatic. Normocephalic. CARDIOVASCULAR: Regular rate and rhythm. No murmur appreciated. RESPIRATORY: No accessory muscle use. Clear to auscultation. Breath sounds equal bilaterally. GASTROINTESTINAL: Abdomen soft, non-tender, nondistended. Hepatic and splenic margins not palpable. MUSCULOSKELETAL: No obvious deformities. No edema. NEUROLOGICAL: Awake and alert. Moves all extremities. No facial asymmetry. Slurred speech. PSYCHIATRIC: Labile affect, denies SI now. Data Data Last Documented VS Vital Signs Date Time Temp Pulse Resp B/P Pulse Ox O2 Delivery O2 Flow Rate FiO2 12/02/16 22:15 98.9 86 19 111/81 95 Room Air Orders Complete Blood Count With Diff (12/02/16 22:05) Comprehensive Metabolic Panel (12/02/16 22:05) Beta Hcg (Quant/Titer) (12/02/16 22:05) Psych Screen (12/02/16 22:05) Drug Screen, Random Urine (12/02/16 22:05) Alcohol (Ethanol) (12/02/16 22:05) Restraints Violent (12/02/16 22:38) Lorazepam Inj (Ativan Inj) (12/02/16 22:45) Restraints Non-Violent MARY.Q3H (12/02/16 22:58) Labs Laboratory Tests Test 12/02/16 12/02/16 22:15 22:30 White Blood Count 6.3 TH/MM3 Red Blood Count 4.55 MIL/MM3 Hemoglobin 14.5 GM/DL Hematocrit 42.8 % Mean Corpuscular Volume 94.1 FL Mean Corpuscular Hemoglobin 31.9 PG Mean Corpuscular Hemoglobin 33.9 % Concent Red Cell Distribution Width 14.6 % Platelet Count 265 TH/MM3 Mean Platelet Volume 7.9 FL Neutrophils (%) (Auto) 50.8 % Lymphocytes (%) (Auto) 44.2 % Monocytes (%) (Auto) 3.3 % Eosinophils (%) (Auto) 1.0 % Basophils (%) (Auto) 0.7 % Neutrophils # (Auto) 3.2 TH/MM3 Lymphocytes # (Auto) 2.8 TH/MM3 Monocytes # (Auto) 0.2 TH/MM3 Eosinophils # (Auto) 0.1 TH/MM3 Basophils # (Auto) 0.0 TH/MM3 CBC Comment DIFF FINAL Differential Comment Sodium Level 143 MEQ/L Potassium Level 3.6 MEQ/L Chloride Level 107 MEQ/L Carbon Dioxide Level 23.6 MEQ/L Anion Gap 12 MEQ/L Blood Urea Nitrogen 12 MG/DL Creatinine 0.63 MG/DL Estimat Glomerular Filtration 103 ML/MIN Rate Random Glucose 71 MG/DL Calcium Level 8.4 MG/DL Total Bilirubin 0.2 MG/DL Aspartate Amino Transf 43 U/L (AST/SGOT) Alanine Aminotransferase 25 U/L (ALT/SGPT) Alkaline Phosphatase 114 U/L Total Protein 8.0 GM/DL Albumin 3.6 GM/DL Human Chorionic Gonadotropin, LESS THAN 1 Quant MIU/ML Ethyl Alcohol Level 448 MG/DL Urine Opiates Screen NEG Urine Barbiturates Screen NEG Urine Amphetamines Screen NEG Urine Benzodiazepines Screen POS Urine Cocaine Screen NEG Urine Cannabinoids Screen NEG MDM Medical Decision Making Medical Screen Exam Complete: Yes Emergency Medical Condition: Yes Interpretation(s) LABS: CBC unremarkable. CMP unremarkable. HCG negative. Alcohol 448. Urine drug screen positive for benzos. Differential Diagnosis Suicidality, substance induced mood disorder, alcoholism, intoxication, other Narrative Course 40-year-old woman who was reportedly endorsing SI while intoxicated. She appears pretty intoxicated at this point. Multiple previous visits for the same. She likely has some element of substance-induced mood disorder. We'll keep her under Humphreys act for now, reassess when sober. Patient is medically clear for psychiatric evaluation. 10:41 PM: Patient made several efforts to wrap a sheet around her neck, and then wrapping cord around her neck. He seems clearly to be behavioral and attention seeking and not to be actual attempts to hurt herself. Nonetheless, she'll need to be restrained, shortness a little bit of Ativan for sedation, and we'll get a sitter for her. We'll also try to get her to a locked room. Diagnosis Primary Impression: Alcohol abuse with alcohol-induced mood disorder Gregg Vidal MD Dec 02, 2016 22:15
[2016-12-02 22:34] LABS: AUTOMATED NEUTROPHIL # 3.2 TH/MM3 (1.8-7.7); BASOPHIL % 0.7 % (0.0-2.0); EOSINOPHIL # 0.1 TH/MM3 (0-0.4); HEMATOCRIT 42.8 % (35.0-46.0); HEMO FLAGS DIFF FINAL; LYMPH % 44.2 % (9.0-44.0); LYMPHOCYTE # 2.8 TH/MM3 (1.0-4.8); MEAN CELL VOLUME 94.1 FL (80.0-100.0); MEAN CORPUSCULAR HEMOGLOBIN 31.9 PG (27.0-34.0); MEAN CORPUSCULAR HGB CONC 33.9 % (32.0-36.0); MONO % 3.3 % (0.0-8.0); NEUT % 50.8 % (16.0-70.0); PLATELET COUNT 265 TH/MM3 (150-450); RED BLOOD COUNT 4.55 MIL/MM3 (4.00-5.30); RED CELL DISTRIBUTION WIDTH 14.6 % (11.6-17.2); WHITE BLOOD COUNT 6.3 TH/MM3 (4.0-11.0)
[2016-12-02] MEDS ORDERED: LORazepam 2 MG/ML VIAL IM ONE (22:45)
[2016-12-02 22:48] LABS: AMPHETAMINE, URINE NEG (NEG); BARBITURATES, URINE NEG (NEG); COCAINE, URINE NEG (NEG)
[2016-12-02 22:57] LABS: ANION GAP 12 MEQ/L (5-15); AST (GOT) 43 U/L (15-37); BICARBONATE 23.6 MEQ/L (21.0-32.0); BLOOD UREA NITROGEN 12 MG/DL (7-18); CHLORIDE 107 MEQ/L (98-107); GLOMERULAR FILTRATION RATE 103 ML/MIN (>89); POTASSIUM 3.6 MEQ/L (3.5-5.1); SODIUM (NA) 143 MEQ/L (136-145)
[2016-12-02 22:58] LABS: ALT (GPT) 25 U/L (10-53)
[2016-12-02 23:02] LABS: ALKALINE PHOSPHATASE 114 U/L (45-117); BETA HCG QUANT LESS THAN 1 MIU/ML (0-5); TOTAL BILIRUBIN ADULT 0.2 MG/DL (0.2-1.0)
[2016-12-03] MEDS ORDERED: ACETAMINOPHEN 325 MG TAB PO ONE (01:30)
[2016-12-03 03:54] VITALS: BP 120/75; PULSE 80; RESP 16; O2SAT 98
[2016-12-03 05:34] VITALS: BP 103/56; PULSE 80; RESP 16; TEMP 98.7; O2SAT 92
[2016-12-03 07:19] VITALS: BP 107/64; PULSE 86; RESP 18; O2SAT 95
[2016-12-03] MEDS ORDERED: FLUMAZENIL 0.5 MG/5 ML VIAL IV PUSH PRN (07:30)
[2016-12-03] MEDS ORDERED: HALOPERIDOL LACTATE 5 MG/ML AMP IM PRN (07:30)
[2016-12-03] MEDS ORDERED: LORazepam 2 MG TAB PO PRN (07:30)
[2016-12-03] MEDS ORDERED: LORazepam 2 MG/ML VIAL IV PUSH PRN ×4 (07:30)
[2016-12-03 07:37] VITALS: BP 103/63; PULSE 92; RESP 18; TEMP 98.5; O2SAT 92
[2016-12-03] MEDS: LORazepam 1 MG TAB PO PRN ×2 (08:13→12:29)
[2016-12-03 09:06] VITALS: BP 101/63; PULSE 100; RESP 20; O2SAT 94
[2016-12-03 11:42] VITALS: BP 106/65; PULSE 100; RESP 18; O2SAT 93
--- NOTE | 2016-12-03 17:21 | PD ---
History of Present Illness Chief Complaint: Psychiatric Symptoms Time Seen by Provider: 17:00 Travel History International Travel<30 Days: No Contact w/Intl Traveler<30days: No Known affected area: No Legal Status Legal Status: Humphreys Act Humphreys Act Signed By: History of Present Illness: 41-year-old female brought in under a Humphreys act for making suicidal threats. According to the law enforcement, the patient's friend called because the patient was making suicidal statements about wanting to hang herself. The patient indicated she was drinking alcohol but denied making suicidal statements when she arrived. However, according to the emergency department note, at some point she started putting a sheet around her neck and wrapping a cord around her neck. The physician felt that she was attention seeking and not actually trying to harm herself. She was restrained and given Ativan. At this time the patient is calm, pleasant and cooperative. She is no longer intoxicated she denies any suicidal or homicidal ideation, plan or intent. Her cognition is intact and she has no psychotic symptoms. She is verbally alisha for safety. She lives by herself and currently receives alimony. She is aware she consumes too much alcohol. PFSH Past Medical History Hx Anticoagulant Therapy: No Anemia: Yes (secondary to heavy menstrual cycle) Bipolar Disorder: Yes Anxiety: Yes Depression: Yes Cardiovascular Problems: No Chemotherapy: No Cerebrovascular Accident: No Diabetes: No Diminished Hearing: No Endocrine: No Gastrointestinal Disorders: Yes (hx of gastric bypass) Genitourinary: Yes (ANEMIA) Immune Disorder: No Neurologic: Yes Psychiatric: No Respiratory: No Immunizations Current: No Renal Failure: Yes (Stage 2 KD) Seizures: Yes (R/T ETOH WITHDRAWL) Thyroid Disease: No Tetanus Vaccination: Unknown ?: Not Menopausal: Yes : 2 Para: 2 Past Surgical History Abdominal Surgery: Yes (GASTRIC BYPASS) Section: Yes Cholecystectomy: Yes Endocrine Surgery: Yes (gall bladder removed) Hysterectomy: Yes Other Surgery: Yes (gastric bypass) Psychiatric History Psychiatric History Hx Psychiatric Treatment: DIAGNOSED WITH ANXIETY, BIPOLAR D/O AND DEPRESSION PER RECORDS Is under the care of Dr. Escobedo. Patient demonstrates no objective significant clinical signs of bipolar disorder at this time. She is not anxious and she is not depressed. She does appear to be an alcoholic. History of Inpatient Treatment: Yes Guns or firearms in home: No Social History Hx Alcohol Use: Yes (DAILY) Hx Tobacco Use: No Hx Substance Use: No Substance Use Type: Alcohol, Benzos (Valium,Xanax) Hx of Substance Use Treatment: Yes Allergies-Medications (Allergen,Severity, Reaction): Coded Allergies: Aspirin (Verified Allergy, Unknown, Nausea/Vomiting, 12/02/16) Reported Meds & Prescriptions Reported Meds & Active Scripts Active Review of Systems Except as stated in HPI: all other systems reviewed are Neg Exam Alert: Yes [place]: Person, Place Mood: Calm Affect: Appropriate Speech: Clear, Logical Eye Contact: Normal Memory Intact: Immediate, Recent, Remote Insight/Judgement Adequate MDM Medical Decision Making Medical Record Reviewed: Yes Assessment/Plan Patient is currently unemployed and living on [facility]. This may be exacerbating her alcohol abuse. However she has into this facility on multiple occasions with alcohol diagnosis. At this time the patient is denying any suicidal or homicidal ideation, plan or intent. She is wanting to go home and in this physician's opinion she does not meet Humphreys act criteria or inpatient psychiatric hospitalization criteria. She was encouraged to stop drinking and start attending AA meetings. While her risk for self-harm is significant when she is drinking, at this point, this physician feels it is counter therapeutic to admit her. Orders Complete Blood Count With Diff (12/02/16 22:05) Comprehensive Metabolic Panel (12/02/16 22:05) Beta Hcg (Quant/Titer) (12/02/16 22:05) Psych Screen (12/02/16 22:05) Drug Screen, Random Urine (12/02/16 22:05) Alcohol (Ethanol) (12/02/16 22:05) Lorazepam Inj (Ativan Inj) (12/02/16 22:45) Restraints Non-Violent MARY.Q3H (12/02/16 22:58) Acetaminophen (Tylenol) (12/03/16 01:30) Diet Regular Basic (12/03/16 Breakfast) Alcohol Withdrawal Asmt-Ciwa Q4HX18 (12/03/16 07:30) Flumazenil Inj (Romazicon Inj) (12/03/16 07:30) Lorazepam (Ativan) (12/03/16 07:30) Lorazepam Inj (Ativan Inj) (12/03/16 07:30) Lorazepam (Ativan) (12/03/16 07:30) Lorazepam Inj (Ativan Inj) (12/03/16 07:30) Lorazepam Inj (Ativan Inj) (12/03/16 07:30) Lorazepam Inj (Ativan Inj) (12/03/16 07:30) Haloperidol Inj (Haldol Inj) (12/03/16 07:30) Diet Regular Basic (12/03/16 Lunch) Diet Regular Basic (12/03/16 Dinner) Results Vital Signs Date Time Temp Pulse Resp B/P Pulse Ox O2 Delivery O2 Flow Rate FiO2 12/03/16 11:42 100 18 106/65 93 Room Air 12/03/16 09:06 100 20 101/63 94 12/03/16 07:37 98.5 92 18 103/63 92 Room Air 12/03/16 07:19 86 18 107/64 95 Room Air 12/03/16 05:34 98.7 80 16 103/56 92 12/03/16 03:54 80 16 120/75 98 Room Air 12/02/16 22:15 98.9 86 19 111/81 95 Room Air Laboratory Tests Test 12/02/16 12/02/16 22:15 22:30 White Blood Count 6.3 Red Blood Count 4.55 Hemoglobin 14.5 Hematocrit 42.8 Mean Corpuscular Volume 94.1 Mean Corpuscular Hemoglobin 31.9 Mean Corpuscular Hemoglobin 33.9 Concent Red Cell Distribution Width 14.6 Platelet Count 265 Mean Platelet Volume 7.9 Neutrophils (%) (Auto) 50.8 Lymphocytes (%) (Auto) 44.2 Monocytes (%) (Auto) 3.3 Eosinophils (%) (Auto) 1.0 Basophils (%) (Auto) 0.7 Neutrophils # (Auto) 3.2 Lymphocytes # (Auto) 2.8 Monocytes # (Auto) 0.2 Eosinophils # (Auto) 0.1 Basophils # (Auto) 0.0 CBC Comment DIFF FINAL Differential Comment Sodium Level 143 Potassium Level 3.6 Chloride Level 107 Carbon Dioxide Level 23.6 Anion Gap 12 Blood Urea Nitrogen 12 Creatinine 0.63 Estimat Glomerular Filtration 103 Rate Random Glucose 71 Calcium Level 8.4 Total Bilirubin 0.2 Aspartate Amino Transf 43 (AST/SGOT) Alanine Aminotransferase 25 (ALT/SGPT) Alkaline Phosphatase 114 Total Protein 8.0 Albumin 3.6 Human Chorionic Gonadotropin, LESS THAN 1 Quant Ethyl Alcohol Level 448 Urine Opiates Screen NEG Urine Barbiturates Screen NEG Urine Amphetamines Screen NEG Urine Benzodiazepines Screen POS Urine Cocaine Screen NEG Urine Cannabinoids Screen NEG Diagnosis Primary Impression: Adjustment disorder with mixed disturbance of emotions and conduct Additional Impression: Alcohol abuse Problem Qualifiers Marky Quigley MD Dec 03, 2016 17:20
== END 2016-12-03 18:12 | disposition home or self-care (01) ==
LOC: NEPD 21:49 → NEPJ 12-03 18:12
DX: F43.25 Adjustment disorder with mixed disturbance of emotions and conduct (principal); F10.14 Alcohol abuse with alcohol-induced mood disorder; Y90.8 Blood alcohol level of 240 mg/100 ml or more
CPT/HCPCS: 80053; 80307; 84702; 85025; 96372; 99285; J2060